=== PATIENT | female | born 1970 | race African-American/Black ===

== ENCOUNTER 2016-10-28 12:34 | Inpatient (IN) | payer SELFPAY ==
[~2016-10-28] VITALS: Ht 154.9 cm; Wt 121.3 kg
[2016-10-28] VITALS (7 sets, daily range): BP systolic 148–180; BP diastolic 88–97
[~2016-10-28 12:34] MED LIST: DOXY100T PO; LISI40TA PO; VENTOLIN HFA18 GM INH
[2016-10-28] MEDS ORDERED: methylPREDNISolone SOD SUCC PF 125 MG/2 ML VIAL. IV ONE (13:00)
[2016-10-28] MEDS ORDERED: IPRATROPIUM BROMIDE 0.5 MG/2.5 ML NEBU. NEB ONE ×2 (13:00→15:45)
[2016-10-28] MEDS ORDERED: ALBUTEROL SULFATE 2.5 MG/3 ML NEBU. CONT NEB ONE ×2 (13:00→15:45)
--- NOTE | 2016-10-28 13:09 | RAD ---
Indication: Chest pain and shortness of air. Time of exam 1302 hours. Correlation is made with prior study from 04/24/2016. The heart is enlarged. There is central congestion but no overt failure. No effusion or pneumothorax is seen. Impression: Cardiomegaly and central congestion.
[2016-10-28 13:14] LABS: CALCIUM 9.6 mg/dL (8.5-10.1); GFR 72.9; POTASSIUM 3.4 mmol/L (3.5-5.1)
[2016-10-28 13:19] LABS: BASO % 0 % (0-3); EOS % 1 % (0-3); HEMATOCRIT 43.9 % (36.0-47.0); HEMOGLOBIN 15.3 g/dL (12.0-15.5); LYMPH # 2.4 x10^3/uL (1.0-4.8); LYMPH % 47 % (24-48); MEAN CORPUSCULAR HEMOGLOBIN 31 pg (25-35); MEAN CORPUSCULAR HGB CONC 35 g/dL (31-37); MEAN CORPUSCULAR VOLUME 90 fL (79-100); MONO % 9 % (0-9); NEUT % 43 % (31-73); PLATELET COUNT 289 x10^3/uL (140-400); RED BLOOD COUNT 4.91 x10^6/uL (3.50-5.40); RED CELL DISTRIBUTION WIDTH 13.6 % (11.5-14.5); WHITE BLOOD COUNT 5.2 x10^3/uL (4.0-11.0)
[2016-10-28 13:20] LABS: ALBUMIN 3.9 g/dL (3.4-5.0); ALBUMIN/GLOBULIN RATIO 0.9 (1.0-1.7); TOTAL BILIRUBIN 0.5 mg/dL (0.2-1.0); TOTAL PROTEIN 8.4 g/dL (6.4-8.2)
[2016-10-28 13:26] LABS: HCO3 ABG 23 mmol/L (21-28); PCO2 ABG 36 mmHg (35-46); PH ABG 7.43 (7.35-7.45); PO2 ABG 69 mmHg (75-108); SAT O2 ABG 94 % (92-99)
[2016-10-28 13:55] LABS: FIO2 ABG 21
[2016-10-28] MEDS ORDERED: MAGNESIUM SULFATE 1GM 100 ML IV ONE (14:30)
[2016-10-28] MEDS ORDERED: EPINEPHrine 1 MG/ML VIAL SQ ONE (14:30)
[2016-10-28] MEDS ORDERED: KETAMINE HCL 500 MG/10 ML VIAL. IV ONE ×2 (14:45→17:45)
[2016-10-28 15:29] LABS: HCO3 ABG 21 mmol/L (21-28); PCO2 ABG 34 mmHg (35-46); PH ABG 7.41 (7.35-7.45); PO2 ABG 67 mmHg (75-108); SAT O2 ABG 93 % (92-99)
[2016-10-28 15:30] LABS: FIO2 ABG 21
--- NOTE | 2016-10-28 16:19 | EKG ---
[facility] [address] [place] [address] Test Date: 2016-10-28 Test Time: 12:41:38 Pat Name: RADHIKA SCHAEFER Department: Room: Gender: F [employer]: : 1970 Requested By: CONI CERVANTES Order Number: [id number] Reading MD: Radha Meraz Measurements Intervals [place] Rate: 108 P: 26 TX: 144 QRS: -9 QRSD: 86 T: 21 QT: 328 QTc: 443 Interpretive Statements SINUS TACHYCARDIA LEFT ATRIAL ABNORMALITY LEFTWARD AXIS ABNORMAL ECG Electronically Signed On 10-31-2016 21:02:13 CDT by Radha Meraz
[2016-10-28] MEDS ORDERED: PROPOFOL 50 ML IV ONE (16:37)
--- NOTE | 2016-10-28 16:42 | PDOC1 ---
History and Physical Date of Admission Date of Admission 10/28/16 Identification/Chief Complaint Chief Complaint sob Problems: Source Source: Caregiver, Chart review, Patient History of Present Illness History of Present Illness 46yo F, came to ER for sob. Pt was here 04/2016 for asthma exacerbation. Pt woke up today with some chest pain, sob, could not go to work and drove to ER. Pt has severe sob, wheezing, not improving with meds in ER, on bipap, better then feels worse again. When i saw her in ER, barely able to talk, diaphoresis, admitted that she is tired of sob. was intubated before. Pt's at bedside, contributed to history that pt lost insurance then not taking her meds daily, only as needed. Pt was doing ok yesterday, no fever, chills, cough or sob till today. denies allergy or pets, not sure which flare it up. Past Medical History Cardiovascular: HTN Pulmonary: Asthma Past Surgical History Past Surgical History: Hysterectomy Family History Family History: Hypertension Social History Smoke: No ALCOHOL: none Drugs: None Current Medications Current Medications Current Medications Medications (Trade) Dose Ordered Sig/Rc Start Time Stop Time Status Last Admin Dose Admin Albuterol Sulfate (Ventolin Neb Soln) 10 mg 1X ONCE 10/28/16 15:45 10/28/16 15:46 DC 10/28/16 15:47 10 MG Epinephrine HCl (Adrenalin) 0.5 mg 1X ONCE 10/28/16 14:30 10/28/16 14:31 DC 10/28/16 14:58 0.5 MG Ipratropium [place] (Atrovent) 0.5 mg 1X ONCE 10/28/16 15:45 10/28/16 15:46 DC 10/28/16 15:47 0.5 MG Ketamine HCl 100 mg 1X ONCE 10/28/16 14:45 10/28/16 14:46 DC 10/28/16 14:55 100 MG Lorazepam (Ativan) 1 mg 1X ONCE 10/28/16 13:00 10/28/16 13:01 DC 10/28/16 13:20 1 MG Magnesium Sulfate/ Dextrose 100 ml @ 100 mls/hr 1X ONCE 10/28/16 14:30 10/28/16 15:29 DC 10/28/16 15:00 100 MLS/HR Methylprednisolone Sodium Succinate (SOLU-Medrol 125MG VIAL) 125 mg 1X ONCE 10/28/16 13:00 10/28/16 13:01 DC 10/28/16 13:26 125 MG Allergies Allergies Allergies Coded Allergies Type Severity Reaction Last Updated Verified amoxicillin Allergy Intermediate 01/26/15 Yes ROS Review of System CONSTITUTIONAL: No fever or chills EYES: No recent changes SKIN: No rash or itching CARDIOVASCULAR: No chest pain, syncope, palpitations, or edema RESPIRATORY: No SOB or cough GASTROINTESTINAL: No nausea, vomiting or abdominal pain NEUROLOGICAL: No headaches or weakness ENDOCRINE: No cold or heat intolerance GENITOURINARY: No urgency or frequency of urination MUSCULOSKELETAL: No back pain or joint pain LYMPHATICS: No enlarged lymph nodes PSYCHIATRIC: No anxiety or depression Physical Exam Physical Exam GEN.: sob, diaphoresis. barely able to talk. HEENT: Head is normocephalic, atraumatic NECK: Supple. LUNGS: bl diffuse mild wheezing with tight BS. HEART: RRR, S1, S2 present. Peripheral pulses intact ABDOMEN: Soft, nontender. Positive bowel sounds. EXTREMITIES: Without any cyanosis. NEUROLOGIC: Normal speech, normal tone PSYCHIATRIC: Normal affect, normal mood. SKIN: No ulcerations Vitals Vitals Vital Signs Date Time Temp Pulse Resp B/P (MAP) Pulse Ox O2 Delivery O2 Flow Rate FiO2 10/28/16 15:47 97 Room Air 10/28/16 14:15 120 135/67 (89) 10/28/16 13:57 32 10/28/16 12:44 98.1 98.1 Labs Labs Laboratory Tests Test 10/28/16 12:46 10/28/16 12:50 10/28/16 15:21 O2 Saturation 94 % (92-99) 93 % (92-99) Arterial Blood pH 7.43 (7.35-7.45) 7.41 (7.35-7.45) Arterial Blood pCO2 at Patient Temp 36 mmHg (35-46) 34 mmHg (35-46) Arterial Blood pO2 at Patient Temp 69 mmHg (75-108) 67 mmHg (75-108) Arterial Blood HCO3 23 mmol/L (21-28) 21 mmol/L (21-28) Arterial Blood Base Excess -1 mmol/L (-3-3) -3 mmol/L (-3-3) FiO2 21 21 White Blood Count 5.2 x10^3/uL (4.0-11.0) Red Blood Count 4.91 x10^6/uL (3.50-5.40) Hemoglobin 15.3 g/dL (12.0-15.5) Hematocrit 43.9 % (36.0-47.0) Mean Corpuscular Volume 90 fL (79-100) Mean Corpuscular Hemoglobin 31 pg (25-35) Mean Corpuscular Hemoglobin Concent 35 g/dL (31-37) Red Cell Distribution Width 13.6 % (11.5-14.5) Platelet Count 289 x10^3/uL (140-400) Neutrophils (%) (Auto) 43 % (31-73) Lymphocytes (%) (Auto) 47 % (24-48) Monocytes (%) (Auto) 9 % (0-9) Eosinophils (%) (Auto) 1 % (0-3) Basophils (%) (Auto) 0 % (0-3) Neutrophils # (Auto) 2.3 x10^3uL (1.8-7.7) Lymphocytes # (Auto) 2.4 x10^3/uL (1.0-4.8) Monocytes # (Auto) 0.5 x10^3/uL (0.0-1.1) Eosinophils # (Auto) 0.0 x10^3/uL (0.0-0.7) Basophils # (Auto) 0.0 x10^3/uL (0.0-0.2) Sodium Level 141 mmol/L (136-145) Potassium Level 3.4 mmol/L (3.5-5.1) Chloride Level 104 mmol/L (98-107) Carbon Dioxide Level 27 mmol/L (21-32) Anion Gap 10 (6-14) Blood Urea Nitrogen 9 mg/dL (7-20) Creatinine 1.0 mg/dL (0.6-1.0) Estimated GFR (Cockcroft-Gault) 72.9 BUN/Creatinine Ratio 9 (6-20) Glucose Level 127 mg/dL (70-99) Calcium Level 9.6 mg/dL (8.5-10.1) Total Bilirubin 0.5 mg/dL (0.2-1.0) Aspartate Amino Transf (AST/SGOT) 35 U/L (15-37) Alanine Aminotransferase (ALT/SGPT) 48 U/L (14-59) Alkaline Phosphatase 145 U/L (46-116) Troponin I Quantitative < 0.017 ng/mL (0.000-0.055) Total Protein 8.4 g/dL (6.4-8.2) Albumin 3.9 g/dL (3.4-5.0) Albumin/Globulin Ratio 0.9 (1.0-1.7) Laboratory Tests Test 10/28/16 12:46 10/28/16 12:50 10/28/16 15:21 O2 Saturation 94 % (92-99) 93 % (92-99) Arterial Blood pH 7.43 (7.35-7.45) 7.41 (7.35-7.45) Arterial Blood pCO2 at Patient Temp 36 mmHg (35-46) 34 mmHg (35-46) Arterial Blood pO2 at Patient Temp 69 mmHg (75-108) 67 mmHg (75-108) Arterial Blood HCO3 23 mmol/L (21-28) 21 mmol/L (21-28) Arterial Blood Base Excess -1 mmol/L (-3-3) -3 mmol/L (-3-3) FiO2 21 21 White Blood Count 5.2 x10^3/uL (4.0-11.0) Red Blood Count 4.91 x10^6/uL (3.50-5.40) Hemoglobin 15.3 g/dL (12.0-15.5) Hematocrit 43.9 % (36.0-47.0) Mean Corpuscular Volume 90 fL (79-100) Mean Corpuscular Hemoglobin 31 pg (25-35) Mean Corpuscular Hemoglobin Concent 35 g/dL (31-37) Red Cell Distribution Width 13.6 % (11.5-14.5) Platelet Count 289 x10^3/uL (140-400) Neutrophils (%) (Auto) 43 % (31-73) Lymphocytes (%) (Auto) 47 % (24-48) Monocytes (%) (Auto) 9 % (0-9) Eosinophils (%) (Auto) 1 % (0-3) Basophils (%) (Auto) 0 % (0-3) Neutrophils # (Auto) 2.3 x10^3uL (1.8-7.7) Lymphocytes # (Auto) 2.4 x10^3/uL (1.0-4.8) Monocytes # (Auto) 0.5 x10^3/uL (0.0-1.1) Eosinophils # (Auto) 0.0 x10^3/uL (0.0-0.7) Basophils # (Auto) 0.0 x10^3/uL (0.0-0.2) Sodium Level 141 mmol/L (136-145) Potassium Level 3.4 mmol/L (3.5-5.1) Chloride Level 104 mmol/L (98-107) Carbon Dioxide Level 27 mmol/L (21-32) Anion Gap 10 (6-14) Blood Urea Nitrogen 9 mg/dL (7-20) Creatinine 1.0 mg/dL (0.6-1.0) Estimated GFR (Cockcroft-Gault) 72.9 BUN/Creatinine Ratio 9 (6-20) Glucose Level 127 mg/dL (70-99) Calcium Level 9.6 mg/dL (8.5-10.1) Total Bilirubin 0.5 mg/dL (0.2-1.0) Aspartate Amino Transf (AST/SGOT) 35 U/L (15-37) Alanine Aminotransferase (ALT/SGPT) 48 U/L (14-59) Alkaline Phosphatase 145 U/L (46-116) Troponin I Quantitative < 0.017 ng/mL (0.000-0.055) Total Protein 8.4 g/dL (6.4-8.2) Albumin 3.9 g/dL (3.4-5.0) Albumin/Globulin Ratio 0.9 (1.0-1.7) VTE Prophylaxis Ordered VTE Prophylaxis Devices: Yes VTE Pharmacological Prophylaxi: Yes Assessment/Plan Assessment/Plan acute resp failure with asthma exacerbation htn urgency uncompliance with meds 2/2 no insurance morbid obesity BMI 41 HYPOkalemia plan: pulm consult likely need intubated ICU care cont solumedrol, duoneb, albuterol prn hold po home meds dvt ppx replete K npo ivf need gi ppx, but this hosp doesnot allow iv protonix or pepcid, need to address tmr plz critical care 40min GUERLINE MARROQUIN MD Oct 28, 2016 16:42
[2016-10-28] MEDS ORDERED: ONDANSETRON PF 4 MG/2 ML VIAL. IV PRN ×2 (16:45→17:15)
[2016-10-28] MEDS ORDERED: hydrALAZINE 20 MG/ML VIAL. IVP PRN (16:45)
[2016-10-28] MEDS ORDERED: ACETAMINOPHEN 325 MG TABLET. PO PRN (16:45)
[2016-10-28] MEDS: PROPOFOL 100 ML IV PRN ×4 (16:50→23:55)
[2016-10-28] MEDS ORDERED: methylPREDNISolone SOD SUCC PF 125 MG/2 ML VIAL. IV SCH ×2 (17:00→18:00)
--- NOTE | 2016-10-28 17:20 | RAD ---
Portable AP supine view CXR: 1703 Clinical indications: ET tube and NG tube placement. Comparison: Same day performed at 1302. Findings: Tip of the ET tube is situated at the opening of the right mainstem bronchus. ET tube may be pulled back 2 cm. NG tube tip is located within the mid body of the stomach. No pneumothorax or pleural effusion is seen. There is some mild left lung base atelectasis now present. The heart size appears more normal in this study due to better positioning. Mediastinum and pulmonary vasculature are unremarkable. IMPRESSION: ET tube tip is too low and situated within the opening of the right mainstem bronchus. This finding was called to the emergency room physician at 5:17 p.m. on October 28, 2016. Mild left lung base atelectasis.
--- NOTE | 2016-10-28 17:34 | ACF ---
Admission Forms Criteria RESPIRATORY FAILURE [facility] Clinical Indications for Admission to Inpatient Care (Place 'X' for any and all applicable criteria): Hospital admission is needed for appropriate care of the patient because of acute respiratory failure or insufficiency as indicated by ANY ONE of the following(1)(2)(3)(4)(5)(6)(7)(8): [X ]I. Mechanical ventilation needed (acute invasive or noninvasive) [ ]II. Severe ventilation deficit as indicated by ANY ONE of the following (9) [ ]a) Respiratory acidosis (pH less than 7.32 and partial pressure of carbon dioxide greater than 40 mm Hg (5.3 kPa)) [ ]b) Partial pressure of carbon dioxide greater than 44 mm Hg (5.9 kPa ) (new) [ ]c) Airflow measurements less than 25% of predicted (eg, peak expiratory flow rate less than 100 L/minute) [ ]d) Forced vital capacity less than 15 mL/kg of ideal body weight, or 50% decrease in vital capacity from baseline [ ]III. Noncardiac pulmonary edema not resolving with rapid emergency treatment (8) [ ]IV. Severe respiratory distress as indicated by ANY ONE of the following: [ ]a) Severe tachypnea (respiratory rate greater than 30, greater than 45 for 6-month-old, greater than 60 for ) [ ]b) Severe hypoxemia (partial pressure of oxygen less than 50 mm Hg ( 6.7 kPa) on greater than 50% oxygen or partial pressure of oxygen to FIO2 ratio less than 200) [ ]c) Mental status deterioration from respiratory disease [ ]V. Airway obstruction or inadequate protection [A](10)(11) The original [employer] content created by [employer] has been revised. The portions of the content which have been revised are identified through the use of italic text or in bold, and [employer] has neither reviewed nor approved the modified material. All other unmodified content is copyright [employer]. Please see references footnoted in the original [employer] edition 2016 Admission Criteria Met?: Yes GWEN LAUREN Oct 28, 2016 17:34
[2016-10-28] MEDS ORDERED: ROCURONIUM 50 MG/5 ML VIAL. IV ONE (17:45)
[2016-10-28 17:47] LABS: HCO3 ABG 20 mmol/L (21-28); PO2 ABG 123 mmHg (75-108); SAT O2 ABG 98 % (92-99)
[2016-10-28 17:48] LABS: PCO2 ABG 42 mmHg (35-46)
[2016-10-28] MEDS: POTASSIUM CL 20MEQ D5-0.45NACL 1,000 ML IV SCH (18:14)
[2016-10-28] MEDS: POTASSIUM CHLORIDE 10MEQ 100 ML IV SCH ×2 (18:15→21:14)
--- NOTE | 2016-10-28 18:18 | PDOC2 ---
CONSULT Date of Consult Date of Consult DATE: 10/28/16 TIME: 18:10 Reason for Consult Reason for Consult: VENT MANAGEMENT STATUS ASTHMATICUS Referring Physician Referring Physician: DR MARROQUIN Identification/Chief Complaint Chief Complaint SOA Problems: Source Source: Caregiver, Chart review History of Present Illness Reason for Visit: 46 WITH HISTORY OF ASTHMA DOES NOT FOLLOW WTIH ANY DOCTORS SEC TO NO INSURANCE NO INHALER AT HOME AT THIS TIME SOA TODAY STATES SHE MIXED AN SHAPER OPERATOR INHALED FUMES NO FEVER UNKNOWN TRIGGERS DOES NOT SMOKE Past Medical History Cardiovascular: HTN Pulmonary: Asthma Past Surgical History Past Surgical History: Hysterectomy Family History Family History: Hypertension Social History No ALCOHOL: none Drugs: None Current Medications Current Medications Current Medications Albuterol Sulfate (Ventolin Neb Soln) 10 mg 1X ONCE CONT NEB Last administered on 10/28/16 12:52; Start 10/28/16 at 13:00; Stop 10/28/16 at 13:01 ; Status DC Ipratropium [place] (Atrovent) 0.5 mg 1X ONCE NEB Last administered on 13:02; Start 10/28/16 at 13:00; Stop 10/28/16 at 13:01; Status DC Methylprednisolone Sodium Succinate (SOLU-Medrol 125MG VIAL) 125 mg 1X ONCE IV Last administered on 10/28/16 13:26; Start 10/28/16 at 13:00; Stop 10/28/16 at 13:01; Status DC Lorazepam (Ativan) 1 mg 1X ONCE IV Last administered on 10/28/16 13:20; Start 10/28/16 at 13:00; Stop 10/28/16 at 13:01; Status DC Magnesium Sulfate/ Dextrose 100 ml @ 100 mls/hr 1X ONCE IV Last administered on 10/28/16 15:00; Start 10/28/16 at 14:30; Stop 10/28/16 at 15:29; Status DC Epinephrine HCl (Adrenalin) 0.5 mg 1X ONCE SQ Last administered on 10/28/16 14:58; Start 10/28/16 at 14:30; Stop 10/28/16 at 14:31; Status DC Ketamine HCl 100 mg 1X ONCE IV Last administered on 10/28/16 14:55; Start at 14:45; Stop 10/28/16 at 14:46; Status DC Albuterol Sulfate (Ventolin Neb Soln) 10 mg 1X ONCE CONT NEB Last administered on 10/28/16 15:47; Start 10/28/16 at 15:45; Stop 10/28/16 at 15:46 ; Status DC Ipratropium [place] (Atrovent) 0.5 mg 1X ONCE NEB Last administered on t 15:47; Start 10/28/16 at 15:45; Stop 10/28/16 at 15:46; Status DC Acetaminophen (Tylenol) 650 mg PRN Q6HRS PRN PO FEVER; Start 10/28/16 at 16:45 Ondansetron HCl (Zofran) 4 mg PRN Q6HRS PRN IV NAUSEA/VOMITING; Start 10/28/16 at 16:45 Morphine Sulfate 2 mg PRN Q2HR PRN IV PAIN; Start 10/28/16 at 16:45 Tramadol HCl (Ultram) 50 mg PRN Q6HRS PRN PO PAIN; Start 10/28/16 at 16:45 Hydralazine HCl (Apresoline) 10 mg PRN Q4HRS PRN IVP ELEVATED BP, SEE COMMENTS ; Start 10/28/16 at 16:45 Docusate Sodium (Colace) 100 mg PRN DAILY PRN PO CONSTIPATION; Start 10/28/16 at 16:45 Albuterol/ Ipratropium (Duoneb) 3 ml RTQID NEB ; Start 10/28/16 at 20:00 Albuterol Sulfate (Ventolin Neb Soln) 2.5 mg PRN Q2HR PRN NEB SHORTNESS OF BREATH; Start 10/28/16 at 16:45 Guaifenesin (Mucinex) 600 mg BID PO ; Start 10/28/16 at 21:00; Stop 10/28/16 at 21:00; Status DC Propofol 50 ml @ As Directed STK-MED ONCE IV ; Start 10/28/16 at 16:37; Stop at 16:38; Status DC Methylprednisolone Sodium Succinate (SOLU-Medrol 125MG VIAL) 60 mg Q8H IV ; Start 10/28/16 at 17:00 Enoxaparin Sodium (Lovenox 40mg Syringe) 40 mg Q12H SQ ; Start 10/28/16 at 21:00 Potassium Chloride 100 ml @ 100 mls/hr Q1H IV ; Start 10/28/16 at 17:00; Stop 10/28/16 at 18:59 Potassium Chloride/Dextrose/ Sod Cl 1,000 ml @ 75 mls/hr [id number] IV ; Start at 17:00 Propofol 100 ml @ 0 mls/hr CONT PRN IV PER PROTOCOL Last administered on 16:50; Start 10/28/16 at 17:00 Ondansetron HCl (Zofran) 4 mg PRN Q8HRS PRN IV NAUSEA/VOMITING; Start 10/28/16 at 17:15; Stop 10/29/16 at 17:14 Methylprednisolone Sodium Succinate (SOLU-Medrol 125MG VIAL) 62.5 mg Q6HRS IV ; Start 10/28/16 at 18:00; Stop 10/28/16 at 18:00; Status DC Rocuronium [place] (Zemuron) 50 mg 1X ONCE IV Last administered on 10/28/16 16:40; Start 10/28/16 at 17:45; Stop 10/28/16 at 17:51; Status DC Ketamine HCl 400 mg 1X ONCE IV Last administered on 10/28/16 16:39; Start at 17:45; Stop 10/28/16 at 17:51; Status DC Active Scripts Active Doxycycline Hyclate 100 Mg Tablet 100 Mg PO BID Reported Ventolin Hfa Inhaler (Albuterol Sulfate) 18 Gm Hfa.aer.ad 2 Puff INH Q4HRS Lisinopril 40 Mg Tablet 1 Tab PO DAILY No Known Medications Prior To Admisstion (Info) Each 1 Each Allergies Allergies: Coded Allergies: amoxicillin (Verified Allergy, Intermediate, 01/26/15) Physical Exam Lungs: Clear to auscultation Heart: Regular rate, Normal S1, Normal S2 Abdomen: Normal bowel sounds, No tenderness Extremities: No clubbing, No cyanosis Skin: No rashes, No breakdown Neuro: Other (SEDATED) Vitals VITALS Vital Signs Date Time Temp Pulse Resp B/P (MAP) Pulse Ox O2 Delivery O2 Flow Rate FiO2 10/28/16 16:53 136 17 185/99 (127) 98 Ventilator 10/28/16 12:44 98.1 98.1 Labs Labs Laboratory Tests Test 10/28/16 12:46 10/28/16 12:50 10/28/16 15:21 10/28/16 17:45 O2 Saturation 94 % (92-99) 93 % (92-99) 98 % (92-99) Arterial Blood pH 7.43 (7.35-7.45) 7.41 (7.35-7.45) 7.30 (7.35-7.45) Arterial Blood pCO2 at Patient Temp 36 mmHg (35-46) 34 mmHg (35-46) 42 mmHg (35-46) Arterial Blood pO2 at Patient Temp 69 mmHg (75-108) 67 mmHg (75-108) 123 mmHg (75-108) Arterial Blood HCO3 23 mmol/L (21-28) 21 mmol/L (21-28) 20 mmol/L (21-28) Arterial Blood Base Excess -1 mmol/L (-3-3) -3 mmol/L (-3-3) -6 mmol/L (-3-3) FiO2 21 21 40.0 White Blood Count 5.2 x10^3/uL (4.0-11.0) Red Blood Count 4.91 x10^6/uL (3.50-5.40) Hemoglobin 15.3 g/dL (12.0-15.5) Hematocrit 43.9 % (36.0-47.0) Mean Corpuscular Volume 90 fL (79-100) Mean Corpuscular Hemoglobin 31 pg (25-35) Mean Corpuscular Hemoglobin Concent 35 g/dL (31-37) Red Cell Distribution Width 13.6 % (11.5-14.5) Platelet Count 289 x10^3/uL (140-400) Neutrophils (%) (Auto) 43 % (31-73) Lymphocytes (%) (Auto) 47 % (24-48) Monocytes (%) (Auto) 9 % (0-9) Eosinophils (%) (Auto) 1 % (0-3) Basophils (%) (Auto) 0 % (0-3) Neutrophils # (Auto) 2.3 x10^3uL (1.8-7.7) Lymphocytes # (Auto) 2.4 x10^3/uL (1.0-4.8) Monocytes # (Auto) 0.5 x10^3/uL (0.0-1.1) Eosinophils # (Auto) 0.0 x10^3/uL (0.0-0.7) Basophils # (Auto) 0.0 x10^3/uL (0.0-0.2) Sodium Level 141 mmol/L (136-145) Potassium Level 3.4 mmol/L (3.5-5.1) Chloride Level 104 mmol/L (98-107) Carbon Dioxide Level 27 mmol/L (21-32) Anion Gap 10 (6-14) Blood Urea Nitrogen 9 mg/dL (7-20) Creatinine 1.0 mg/dL (0.6-1.0) Estimated GFR (Cockcroft-Gault) 72.9 BUN/Creatinine Ratio 9 (6-20) Glucose Level 127 mg/dL (70-99) Calcium Level 9.6 mg/dL (8.5-10.1) Total Bilirubin 0.5 mg/dL (0.2-1.0) Aspartate Amino Transf (AST/SGOT) 35 U/L (15-37) Alanine Aminotransferase (ALT/SGPT) 48 U/L (14-59) Alkaline Phosphatase 145 U/L (46-116) Troponin I Quantitative < 0.017 ng/mL (0.000-0.055) Total Protein 8.4 g/dL (6.4-8.2) Albumin 3.9 g/dL (3.4-5.0) Albumin/Globulin Ratio 0.9 (1.0-1.7) Laboratory Tests Test 10/28/16 12:46 10/28/16 12:50 10/28/16 15:21 10/28/16 17:45 O2 Saturation 94 % (92-99) 93 % (92-99) 98 % (92-99) Arterial Blood pH 7.43 (7.35-7.45) 7.41 (7.35-7.45) 7.30 (7.35-7.45) Arterial Blood pCO2 at Patient Temp 36 mmHg (35-46) 34 mmHg (35-46) 42 mmHg (35-46) Arterial Blood pO2 at Patient Temp 69 mmHg (75-108) 67 mmHg (75-108) 123 mmHg (75-108) Arterial Blood HCO3 23 mmol/L (21-28) 21 mmol/L (21-28) 20 mmol/L (21-28) Arterial Blood Base Excess -1 mmol/L (-3-3) -3 mmol/L (-3-3) -6 mmol/L (-3-3) FiO2 21 21 40.0 White Blood Count 5.2 x10^3/uL (4.0-11.0) Red Blood Count 4.91 x10^6/uL (3.50-5.40) Hemoglobin 15.3 g/dL (12.0-15.5) Hematocrit 43.9 % (36.0-47.0) Mean Corpuscular Volume 90 fL (79-100) Mean Corpuscular Hemoglobin 31 pg (25-35) Mean Corpuscular Hemoglobin Concent 35 g/dL (31-37) Red Cell Distribution Width 13.6 % (11.5-14.5) Platelet Count 289 x10^3/uL (140-400) Neutrophils (%) (Auto) 43 % (31-73) Lymphocytes (%) (Auto) 47 % (24-48) Monocytes (%) (Auto) 9 % (0-9) Eosinophils (%) (Auto) 1 % (0-3) Basophils (%) (Auto) 0 % (0-3) Neutrophils # (Auto) 2.3 x10^3uL (1.8-7.7) Lymphocytes # (Auto) 2.4 x10^3/uL (1.0-4.8) Monocytes # (Auto) 0.5 x10^3/uL (0.0-1.1) Eosinophils # (Auto) 0.0 x10^3/uL (0.0-0.7) Basophils # (Auto) 0.0 x10^3/uL (0.0-0.2) Sodium Level 141 mmol/L (136-145) Potassium Level 3.4 mmol/L (3.5-5.1) Chloride Level 104 mmol/L (98-107) Carbon Dioxide Level 27 mmol/L (21-32) Anion Gap 10 (6-14) Blood Urea Nitrogen 9 mg/dL (7-20) Creatinine 1.0 mg/dL (0.6-1.0) Estimated GFR (Cockcroft-Gault) 72.9 BUN/Creatinine Ratio 9 (6-20) Glucose Level 127 mg/dL (70-99) Calcium Level 9.6 mg/dL (8.5-10.1) Total Bilirubin 0.5 mg/dL (0.2-1.0) Aspartate Amino Transf (AST/SGOT) 35 U/L (15-37) Alanine Aminotransferase (ALT/SGPT) 48 U/L (14-59) Alkaline Phosphatase 145 U/L (46-116) Troponin I Quantitative < 0.017 ng/mL (0.000-0.055) Total Protein 8.4 g/dL (6.4-8.2) Albumin 3.9 g/dL (3.4-5.0) Albumin/Globulin Ratio 0.9 (1.0-1.7) Images Images CXR REVIEWED NO INFILTRATES Assessment/Plan Assessment/Plan PT SEEN IN ER, SPOKE WITH FAMILY AND MOTHER STATUS ASTHMATICUS INHALATION OF TOXIC FUMES PLAN PT INTUBATED NOT IMPROVING WITH THERAPY IN ER STEROIDS, NEBS, MECHANICAL SUPPORT FOR NOW HOPEFULLY EXTUBATE IN AM D/W ER PHYSICIAN ONCE D/C CAN [employer]Y'S ADVISER SOME SAMPLES INHALERS FROM MY OFFICE, THEY HAVE APPLIED FOR FREE MED AND DID NOT QUALIFY THANKS CHELSEA BRADSHAW MD Oct 28, 2016 18:18
[2016-10-28] MEDS: IPRATRPIUM/ALBUTEROL 0.5/2.5MG 3 ML NEBU. NEB SCH (19:28)
--- NOTE | 2016-10-28 20:01 | ED.ADGEN ---
Past Medical History Past Medical History: Anxiety, Asthma, Hypertension Past Surgical History: Hysterectomy, Tonsillectomy Additional Past Surgical Histo: bladder sling, cataract Alcohol Use: Occasionally Drug Use: None Adult General Chief Complaint Chief Complaint: CHEST WALL PAIN HPI HPI Patient is a 46 year old -Citizen Of [place] female with history of severe asthma with multiple prior hospitalizations requiring intubation presents with chest wall pain, shortness of breath with tight wheezing earlier this morning. Symptoms have progressed despite home nebulizer treatment use. Patient denies specific cause her trigger. She is a nonsmoker. History is limited due to the patient's respiratory distress. Review of Systems Review of Systems Review symptoms as per history of present illness. All other review symptoms are negative. Current Medications Current Medications Current Medications Medications (Trade) Dose Ordered Sig/Rc Start Time Stop Time Status Last Admin Dose Admin Albuterol Sulfate (Ventolin Neb Soln) 10 mg 1X ONCE 10/28/16 13:00 10/28/16 13:01 DC 10/28/16 12:52 10 MG Epinephrine HCl (Adrenalin) 0.5 mg 1X ONCE 10/28/16 14:30 10/28/16 14:31 DC 10/28/16 14:58 0.5 MG Ipratropium [place] (Atrovent) 0.5 mg 1X ONCE 10/28/16 13:00 10/28/16 13:01 DC 10/28/16 13:02 0.5 MG Lorazepam (Ativan) 1 mg 1X ONCE 10/28/16 13:00 10/28/16 13:01 DC 10/28/16 13:20 1 MG Magnesium Sulfate/ Dextrose 100 ml @ 100 mls/hr 1X ONCE 10/28/16 14:30 10/28/16 15:29 DC 10/28/16 15:00 100 MLS/HR Methylprednisolone Sodium Succinate (SOLU-Medrol 125MG VIAL) 125 mg 1X ONCE 10/28/16 13:00 10/28/16 13:01 DC 10/28/16 13:26 125 MG Allergies Allergies Allergies Coded Allergies Type Severity Reaction Last Updated Verified amoxicillin Allergy Intermediate 01/26/15 Yes Physical Exam Physical Exam Constitutional: Well developed, well nourished, on her to severe respiratory distress. HENT: Normocephalic, atraumatic, bilateral external ears normal, oropharynx moist. Eyes: PERRLA, EOMI, conjunctiva normal. Neck: Normal range of motion, supple. Cardiovascular: Tachycardic.. Lungs & Thorax: Respirations labored, moderate to severe respiratory distress, speaks in 2-3 word sentences. Rest sounds bilaterally, no wheezes auscultated. Abdomen: Bowel sounds normal, soft, no tenderness. Skin: Warm, dry, no erythema. Back: No tenderness. Extremities: No tenderness. Neurologic: Alert and oriented X 3, normal motor function, normal sensory function, no focal deficits noted. Psychologic: Affect, anxious. Current Patient Data Vital Signs Vital Signs Date Time Temp Pulse Resp B/P (MAP) Pulse Ox O2 Delivery O2 Flow Rate FiO2 10/28/16 14:30 98 BiPAP/CPAP 10/28/16 14:15 120 135/67 (89) 10/28/16 13:57 32 10/28/16 12:44 98.1 98.1 Lab Values Laboratory Tests Test 10/28/16 12:46 10/28/16 12:50 O2 Saturation 94 % (92-99) Arterial Blood pH 7.43 (7.35-7.45) Arterial Blood pCO2 at Patient Temp 36 mmHg (35-46) Arterial Blood pO2 at Patient Temp 69 mmHg (75-108) L Arterial Blood HCO3 23 mmol/L (21-28) Arterial Blood Base Excess -1 mmol/L (-3-3) FiO2 21 White Blood Count 5.2 x10^3/uL (4.0-11.0) Red Blood Count 4.91 x10^6/uL (3.50-5.40) Hemoglobin 15.3 g/dL (12.0-15.5) Hematocrit 43.9 % (36.0-47.0) Mean Corpuscular Volume 90 fL (79-100) Mean Corpuscular Hemoglobin 31 pg (25-35) Mean Corpuscular Hemoglobin Concent 35 g/dL (31-37) Red Cell Distribution Width 13.6 % (11.5-14.5) Platelet Count 289 x10^3/uL (140-400) Neutrophils (%) (Auto) 43 % (31-73) Lymphocytes (%) (Auto) 47 % (24-48) Monocytes (%) (Auto) 9 % (0-9) Eosinophils (%) (Auto) 1 % (0-3) Basophils (%) (Auto) 0 % (0-3) Neutrophils # (Auto) 2.3 x10^3uL (1.8-7.7) Lymphocytes # (Auto) 2.4 x10^3/uL (1.0-4.8) Monocytes # (Auto) 0.5 x10^3/uL (0.0-1.1) Eosinophils # (Auto) 0.0 x10^3/uL (0.0-0.7) Basophils # (Auto) 0.0 x10^3/uL (0.0-0.2) Sodium Level 141 mmol/L (136-145) Potassium Level 3.4 mmol/L (3.5-5.1) L Chloride Level 104 mmol/L (98-107) Carbon Dioxide Level 27 mmol/L (21-32) Anion Gap 10 (6-14) Blood Urea Nitrogen 9 mg/dL (7-20) Creatinine 1.0 mg/dL (0.6-1.0) Estimated GFR (Cockcroft-Gault) 72.9 BUN/Creatinine Ratio 9 (6-20) Glucose Level 127 mg/dL (70-99) H Calcium Level 9.6 mg/dL (8.5-10.1) Total Bilirubin 0.5 mg/dL (0.2-1.0) Aspartate Amino Transferase (AST) 35 U/L (15-37) Alanine Aminotransferase (ALT) 48 U/L (14-59) Alkaline Phosphatase 145 U/L (46-116) H Troponin I Quantitative < 0.017 ng/mL (0.000-0.055) Total Protein 8.4 g/dL (6.4-8.2) H Albumin 3.9 g/dL (3.4-5.0) Albumin/Globulin Ratio 0.9 (1.0-1.7) L Laboratory Tests 10/28/16 12:50 Laboratory Tests 10/28/16 12:50 EKG EKG [] Radiology/Procedures Radiology/Procedures [Chest x-ray: No acute cardiopulmonary disease Post intubation chest x-ray: Endotracheal above her right mainstem bronchus Indication: Respiratory failure Consent: Unable to give consent due to emergent nature. Medications Used: see nursing note Procedure: The patient was placed in the appropriate position. Intubation was performed via video laryngoscopy with an 7.5 mm endotracheal tube. ER Ttube secured at the lip at 23 cm.. Initial confirmation of placement included bilateral breath sounds, tube fogging, adequate chest rise, adequate pulse oximetry reading. A chest x-ray to verify correct placement of the tube showed appropriate tube position. The patient tolerated the procedure well. Complications: none. Course & Med Decision Making Course & Med Decision Making Pertinent Labs and Imaging studies reviewed. (See chart for details) [Patient on aggressive treatment and care of asthma exacerbation with medical therapy and BiPAP treatment. Patient intubated without complication. Pulmonology consult. Dr. Mendez in the ED for admission and orders. Dragon Disclaimer Dragon Disclaimer This electronic medical record was generated, in whole or in part, using a voice recognition dictation system. CONI CERVANTES DO Oct 28, 2016 20:01
[2016-10-28] MEDS ORDERED: FAMOTIDINE 20 MG/2 ML VIAL IVP SCH (21:00)
[2016-10-28] MEDS: ENOXAPARIN 40 MG/0.4 ML SYRINGE. SQ SCH (21:15)
[2016-10-29] VITALS (24 sets, daily range): BP systolic 117–199; BP diastolic 58–119
[2016-10-29] MEDS: methylPREDNISolone SOD SUCC PF 125 MG/2 ML VIAL. IV SCH ×3 (01:14→17:48)
[2016-10-29] MEDS: ALBUTEROL SULFATE 2.5 MG/3 ML NEBU. NEB PRN (03:11)
[2016-10-29] MEDS: PROPOFOL 100 ML IV PRN ×2 (03:41→06:27)
[2016-10-29 05:33] LABS: CALCIUM 9.8 mg/dL (8.5-10.1); CREATININE 0.8 mg/dL (0.6-1.0); GFR 94.3; POTASSIUM 4.4 mmol/L (3.5-5.1)
--- NOTE | 2016-10-29 07:26 | RAD ---
Indication: Respiratory failure. Time of exam 0615 hours. Correlation is made with prior study from 10/28/2016. The ET tube and NG tube remain in place. The heart size is stable. There is infiltrate or atelectasis in the left base. There is some minimal linear atelectasis right base. No effusion or pneumothorax is seen. The mid and upper lung burch are clear. Impression: Bibasilar infiltrate or atelectasis, left greater. This is similar to the examination one day earlier.
[2016-10-29] MEDS: POTASSIUM CL 20MEQ D5-0.45NACL 1,000 ML IV SCH (08:15)
[2016-10-29] MEDS: ENOXAPARIN 40 MG/0.4 ML SYRINGE. SQ SCH ×2 (08:16→21:30)
[2016-10-29 08:29] LABS: HCO3 ABG 22 mmol/L (21-28); PCO2 ABG 26 mmHg (35-46); PH ABG 7.53 (7.35-7.45); PO2 ABG 69 mmHg (75-108); SAT O2 ABG 96 % (92-99)
[2016-10-29 08:41] LABS: FIO2 ABG 30
[2016-10-29] MEDS: IPRATRPIUM/ALBUTEROL 0.5/2.5MG 3 ML NEBU. NEB SCH ×4 (08:44→19:54)
[2016-10-29 09:22] LABS: BASO % 0 % (0-3); EOS % 0 % (0-3); HEMATOCRIT 43.8 % (36.0-47.0); HEMOGLOBIN 14.9 g/dL (12.0-15.5); LYMPH # 2.2 x10^3/uL (1.0-4.8); LYMPH % 13 % (24-48); MEAN CORPUSCULAR HEMOGLOBIN 31 pg (25-35); MEAN CORPUSCULAR HGB CONC 34 g/dL (31-37); MEAN CORPUSCULAR VOLUME 90 fL (79-100); MONO % 2 % (0-9); NEUT % 85 % (31-73); PLATELET COUNT 299 x10^3/uL (140-400); RED BLOOD COUNT 4.86 x10^6/uL (3.50-5.40); RED CELL DISTRIBUTION WIDTH 13.8 % (11.5-14.5); WHITE BLOOD COUNT 16.4 x10^3/uL (4.0-11.0)
--- NOTE | 2016-10-29 11:16 | PDOC ---
PULMONARY PROGRESS NOTES Subjective INTUBATED, AWAKE ON CPAP TRIAL Vitals Vital Signs Date Time Temp Pulse Resp B/P (MAP) Pulse Ox O2 Delivery O2 Flow Rate FiO2 10/29/16 11:00 115 16 199/105 (136) 100 Ventilator 10/29/16 08:00 98.8 98.8 General: Alert, No acute distress Lungs: Clear Cardiovascular: S1 Abdomen: Soft Neuro Exam: Alert Extremities: No Edema Skin: Warm Labs Laboratory Tests Test 10/28/16 12:46 10/28/16 12:50 10/28/16 15:21 10/28/16 17:45 O2 Saturation 94 % (92-99) 93 % (92-99) 98 % (92-99) Arterial Blood pH 7.43 (7.35-7.45) 7.41 (7.35-7.45) 7.30 (7.35-7.45) Arterial Blood pCO2 at Patient Temp 36 mmHg (35-46) 34 mmHg (35-46) 42 mmHg (35-46) Arterial Blood pO2 at Patient Temp 69 mmHg (75-108) 67 mmHg (75-108) 123 mmHg (75-108) Arterial Blood HCO3 23 mmol/L (21-28) 21 mmol/L (21-28) 20 mmol/L (21-28) Arterial Blood Base Excess -1 mmol/L (-3-3) -3 mmol/L (-3-3) -6 mmol/L (-3-3) FiO2 21 21 40.0 White Blood Count 5.2 x10^3/uL (4.0-11.0) Red Blood Count 4.91 x10^6/uL (3.50-5.40) Hemoglobin 15.3 g/dL (12.0-15.5) Hematocrit 43.9 % (36.0-47.0) Mean Corpuscular Volume 90 fL (79-100) Mean Corpuscular Hemoglobin 31 pg (25-35) Mean Corpuscular Hemoglobin Concent 35 g/dL (31-37) Red Cell Distribution Width 13.6 % (11.5-14.5) Platelet Count 289 x10^3/uL (140-400) Neutrophils (%) (Auto) 43 % (31-73) Lymphocytes (%) (Auto) 47 % (24-48) Monocytes (%) (Auto) 9 % (0-9) Eosinophils (%) (Auto) 1 % (0-3) Basophils (%) (Auto) 0 % (0-3) Neutrophils # (Auto) 2.3 x10^3uL (1.8-7.7) Lymphocytes # (Auto) 2.4 x10^3/uL (1.0-4.8) Monocytes # (Auto) 0.5 x10^3/uL (0.0-1.1) Eosinophils # (Auto) 0.0 x10^3/uL (0.0-0.7) Basophils # (Auto) 0.0 x10^3/uL (0.0-0.2) Sodium Level 141 mmol/L (136-145) Potassium Level 3.4 mmol/L (3.5-5.1) Chloride Level 104 mmol/L (98-107) Carbon Dioxide Level 27 mmol/L (21-32) Anion Gap 10 (6-14) Blood Urea Nitrogen 9 mg/dL (7-20) Creatinine 1.0 mg/dL (0.6-1.0) Estimated GFR (Cockcroft-Gault) 72.9 BUN/Creatinine Ratio 9 (6-20) Glucose Level 127 mg/dL (70-99) Calcium Level 9.6 mg/dL (8.5-10.1) Total Bilirubin 0.5 mg/dL (0.2-1.0) Aspartate Amino Transf (AST/SGOT) 35 U/L (15-37) Alanine Aminotransferase (ALT/SGPT) 48 U/L (14-59) Alkaline Phosphatase 145 U/L (46-116) Troponin I Quantitative < 0.017 ng/mL (0.000-0.055) Total Protein 8.4 g/dL (6.4-8.2) Albumin 3.9 g/dL (3.4-5.0) Albumin/Globulin Ratio 0.9 (1.0-1.7) Test 10/29/16 04:00 10/29/16 08:00 10/29/16 08:40 Sodium Level 139 mmol/L (136-145) Potassium Level 4.4 mmol/L (3.5-5.1) Chloride Level 104 mmol/L (98-107) Carbon Dioxide Level 20 mmol/L (21-32) Anion Gap 15 (6-14) Blood Urea Nitrogen 10 mg/dL (7-20) Creatinine 0.8 mg/dL (0.6-1.0) Estimated GFR (Cockcroft-Gault) 94.3 Glucose Level 169 mg/dL (70-99) Calcium Level 9.8 mg/dL (8.5-10.1) O2 Saturation 96 % (92-99) Arterial Blood pH 7.53 (7.35-7.45) Arterial Blood pCO2 at Patient Temp 26 mmHg (35-46) Arterial Blood pO2 at Patient Temp 69 mmHg (75-108) Arterial Blood HCO3 22 mmol/L (21-28) Arterial Blood Base Excess 1 mmol/L (-3-3) FiO2 30 White Blood Count 16.4 x10^3/uL (4.0-11.0) Red Blood Count 4.86 x10^6/uL (3.50-5.40) Hemoglobin 14.9 g/dL (12.0-15.5) Hematocrit 43.8 % (36.0-47.0) Mean Corpuscular Volume 90 fL (79-100) Mean Corpuscular Hemoglobin 31 pg (25-35) Mean Corpuscular Hemoglobin Concent 34 g/dL (31-37) Red Cell Distribution Width 13.8 % (11.5-14.5) Platelet Count 299 x10^3/uL (140-400) Neutrophils (%) (Auto) 85 % (31-73) Lymphocytes (%) (Auto) 13 % (24-48) Monocytes (%) (Auto) 2 % (0-9) Eosinophils (%) (Auto) 0 % (0-3) Basophils (%) (Auto) 0 % (0-3) Neutrophils # (Auto) 13.9 x10^3uL (1.8-7.7) Lymphocytes # (Auto) 2.2 x10^3/uL (1.0-4.8) Monocytes # (Auto) 0.3 x10^3/uL (0.0-1.1) Eosinophils # (Auto) 0.0 x10^3/uL (0.0-0.7) Basophils # (Auto) 0.0 x10^3/uL (0.0-0.2) Laboratory Tests Test 10/28/16 12:46 10/28/16 12:50 10/28/16 15:21 10/28/16 17:45 O2 Saturation 94 % (92-99) 93 % (92-99) 98 % (92-99) Arterial Blood pH 7.43 (7.35-7.45) 7.41 (7.35-7.45) 7.30 (7.35-7.45) Arterial Blood pCO2 at Patient Temp 36 mmHg (35-46) 34 mmHg (35-46) 42 mmHg (35-46) Arterial Blood pO2 at Patient Temp 69 mmHg (75-108) 67 mmHg (75-108) 123 mmHg (75-108) Arterial Blood HCO3 23 mmol/L (21-28) 21 mmol/L (21-28) 20 mmol/L (21-28) Arterial Blood Base Excess -1 mmol/L (-3-3) -3 mmol/L (-3-3) -6 mmol/L (-3-3) FiO2 21 21 40.0 White Blood Count 5.2 x10^3/uL (4.0-11.0) Red Blood Count 4.91 x10^6/uL (3.50-5.40) Hemoglobin 15.3 g/dL (12.0-15.5) Hematocrit 43.9 % (36.0-47.0) Mean Corpuscular Volume 90 fL (79-100) Mean Corpuscular Hemoglobin 31 pg (25-35) Mean Corpuscular Hemoglobin Concent 35 g/dL (31-37) Red Cell Distribution Width 13.6 % (11.5-14.5) Platelet Count 289 x10^3/uL (140-400) Neutrophils (%) (Auto) 43 % (31-73) Lymphocytes (%) (Auto) 47 % (24-48) Monocytes (%) (Auto) 9 % (0-9) Eosinophils (%) (Auto) 1 % (0-3) Basophils (%) (Auto) 0 % (0-3) Neutrophils # (Auto) 2.3 x10^3uL (1.8-7.7) Lymphocytes # (Auto) 2.4 x10^3/uL (1.0-4.8) Monocytes # (Auto) 0.5 x10^3/uL (0.0-1.1) Eosinophils # (Auto) 0.0 x10^3/uL (0.0-0.7) Basophils # (Auto) 0.0 x10^3/uL (0.0-0.2) Sodium Level 141 mmol/L (136-145) Potassium Level 3.4 mmol/L (3.5-5.1) Chloride Level 104 mmol/L (98-107) Carbon Dioxide Level 27 mmol/L (21-32) Anion Gap 10 (6-14) Blood Urea Nitrogen 9 mg/dL (7-20) Creatinine 1.0 mg/dL (0.6-1.0) Estimated GFR (Cockcroft-Gault) 72.9 BUN/Creatinine Ratio 9 (6-20) Glucose Level 127 mg/dL (70-99) Calcium Level 9.6 mg/dL (8.5-10.1) Total Bilirubin 0.5 mg/dL (0.2-1.0) Aspartate Amino Transf (AST/SGOT) 35 U/L (15-37) Alanine Aminotransferase (ALT/SGPT) 48 U/L (14-59) Alkaline Phosphatase 145 U/L (46-116) Troponin I Quantitative < 0.017 ng/mL (0.000-0.055) Total Protein 8.4 g/dL (6.4-8.2) Albumin 3.9 g/dL (3.4-5.0) Albumin/Globulin Ratio 0.9 (1.0-1.7) Test 10/29/16 04:00 10/29/16 08:00 10/29/16 08:40 Sodium Level 139 mmol/L (136-145) Potassium Level 4.4 mmol/L (3.5-5.1) Chloride Level 104 mmol/L (98-107) Carbon Dioxide Level 20 mmol/L (21-32) Anion Gap 15 (6-14) Blood Urea Nitrogen 10 mg/dL (7-20) Creatinine 0.8 mg/dL (0.6-1.0) Estimated GFR (Cockcroft-Gault) 94.3 Glucose Level 169 mg/dL (70-99) Calcium Level 9.8 mg/dL (8.5-10.1) O2 Saturation 96 % (92-99) Arterial Blood pH 7.53 (7.35-7.45) Arterial Blood pCO2 at Patient Temp 26 mmHg (35-46) Arterial Blood pO2 at Patient Temp 69 mmHg (75-108) Arterial Blood HCO3 22 mmol/L (21-28) Arterial Blood Base Excess 1 mmol/L (-3-3) FiO2 30 White Blood Count 16.4 x10^3/uL (4.0-11.0) Red Blood Count 4.86 x10^6/uL (3.50-5.40) Hemoglobin 14.9 g/dL (12.0-15.5) Hematocrit 43.8 % (36.0-47.0) Mean Corpuscular Volume 90 fL (79-100) Mean Corpuscular Hemoglobin 31 pg (25-35) Mean Corpuscular Hemoglobin Concent 34 g/dL (31-37) Red Cell Distribution Width 13.8 % (11.5-14.5) Platelet Count 299 x10^3/uL (140-400) Neutrophils (%) (Auto) 85 % (31-73) Lymphocytes (%) (Auto) 13 % (24-48) Monocytes (%) (Auto) 2 % (0-9) Eosinophils (%) (Auto) 0 % (0-3) Basophils (%) (Auto) 0 % (0-3) Neutrophils # (Auto) 13.9 x10^3uL (1.8-7.7) Lymphocytes # (Auto) 2.2 x10^3/uL (1.0-4.8) Monocytes # (Auto) 0.3 x10^3/uL (0.0-1.1) Eosinophils # (Auto) 0.0 x10^3/uL (0.0-0.7) Basophils # (Auto) 0.0 x10^3/uL (0.0-0.2) Medications Active Scripts Medications Dose Route/Sig Max Daily Dose Days Date Category Ventolin Hfa Inhaler (Albuterol Sulfate) 18 Gm Hfa.aer.ad 2 Puff INH Q4HRS 04/22/16 Reported Lisinopril 40 Mg Tablet 1 Tab PO DAILY 04/22/16 Reported No Known Medications Prior To Admisstion (Info) Each 1 Each 05/19/13 Reported Impression . 1. ACUTE RF DUE TO 2. STATUS ASTHMATICUS 3. INHALATION OF TOXIC FUMES (AMMONIA/BLEACH) 4. CLEAR CXR 5. LEUKOCYTOSIS DUE TO STEROIDS Plan . 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
[2016-10-29] MEDS: LABETALOL 20 MG/4 ML DISP.SYRIN. IVP PRN (11:20)
--- NOTE | 2016-10-29 11:33 | PDOC ---
PROGRESS NOTES Chief Complaint Chief Complaint Acute hypoxic respir failure HTN urgency ASSESSMENT AND PLAN: 1. Asthma exacerbation: intubated. management as per Pulm service. cont steroids, nebs. 2. HTN urgency: hx of HTN, but not taking meds at home (financial/ no F/U). on PRN IV only; switch hydralazine to labetalol 3. DM2: borderline, prob unmasked by steroids. ISS for now, obtain HgbA1c 4. Hypokalemia: resolved 5. Prophylaxis: lovenox, H2B 6. Morbid obesity BMI 41 Vitals Vitals Vital Signs Date Time Temp Pulse Resp B/P (MAP) Pulse Ox O2 Delivery O2 Flow Rate FiO2 10/29/16 11:20 112 199/108 10/29/16 11:00 16 100 Ventilator 10/29/16 08:00 98.8 98.8 Physical Exam General: Other (intubed, sedated) Heart: Other (tachycardic) Lungs: Clear Abdomen: Normal bowel sounds, Soft, No tenderness Extremities: No clubbing, No cyanosis Skin: No rashes Labs LABS Laboratory Tests Test 10/28/16 12:46 10/28/16 12:50 10/28/16 15:21 10/28/16 17:45 O2 Saturation 94 % (92-99) 93 % (92-99) 98 % (92-99) Arterial Blood pH 7.43 (7.35-7.45) 7.41 (7.35-7.45) 7.30 (7.35-7.45) Arterial Blood pCO2 at Patient Temp 36 mmHg (35-46) 34 mmHg (35-46) 42 mmHg (35-46) Arterial Blood pO2 at Patient Temp 69 mmHg (75-108) 67 mmHg (75-108) 123 mmHg (75-108) Arterial Blood HCO3 23 mmol/L (21-28) 21 mmol/L (21-28) 20 mmol/L (21-28) Arterial Blood Base Excess -1 mmol/L (-3-3) -3 mmol/L (-3-3) -6 mmol/L (-3-3) FiO2 21 21 40.0 White Blood Count 5.2 x10^3/uL (4.0-11.0) Red Blood Count 4.91 x10^6/uL (3.50-5.40) Hemoglobin 15.3 g/dL (12.0-15.5) Hematocrit 43.9 % (36.0-47.0) Mean Corpuscular Volume 90 fL (79-100) Mean Corpuscular Hemoglobin 31 pg (25-35) Mean Corpuscular Hemoglobin Concent 35 g/dL (31-37) Red Cell Distribution Width 13.6 % (11.5-14.5) Platelet Count 289 x10^3/uL (140-400) Neutrophils (%) (Auto) 43 % (31-73) Lymphocytes (%) (Auto) 47 % (24-48) Monocytes (%) (Auto) 9 % (0-9) Eosinophils (%) (Auto) 1 % (0-3) Basophils (%) (Auto) 0 % (0-3) Neutrophils # (Auto) 2.3 x10^3uL (1.8-7.7) Lymphocytes # (Auto) 2.4 x10^3/uL (1.0-4.8) Monocytes # (Auto) 0.5 x10^3/uL (0.0-1.1) Eosinophils # (Auto) 0.0 x10^3/uL (0.0-0.7) Basophils # (Auto) 0.0 x10^3/uL (0.0-0.2) Sodium Level 141 mmol/L (136-145) Potassium Level 3.4 mmol/L (3.5-5.1) Chloride Level 104 mmol/L (98-107) Carbon Dioxide Level 27 mmol/L (21-32) Anion Gap 10 (6-14) Blood Urea Nitrogen 9 mg/dL (7-20) Creatinine 1.0 mg/dL (0.6-1.0) Estimated GFR (Cockcroft-Gault) 72.9 BUN/Creatinine Ratio 9 (6-20) Glucose Level 127 mg/dL (70-99) Calcium Level 9.6 mg/dL (8.5-10.1) Total Bilirubin 0.5 mg/dL (0.2-1.0) Aspartate Amino Transf (AST/SGOT) 35 U/L (15-37) Alanine Aminotransferase (ALT/SGPT) 48 U/L (14-59) Alkaline Phosphatase 145 U/L (46-116) Troponin I Quantitative < 0.017 ng/mL (0.000-0.055) Total Protein 8.4 g/dL (6.4-8.2) Albumin 3.9 g/dL (3.4-5.0) Albumin/Globulin Ratio 0.9 (1.0-1.7) Test 10/29/16 04:00 10/29/16 08:00 10/29/16 08:40 Sodium Level 139 mmol/L (136-145) Potassium Level 4.4 mmol/L (3.5-5.1) Chloride Level 104 mmol/L (98-107) Carbon Dioxide Level 20 mmol/L (21-32) Anion Gap 15 (6-14) Blood Urea Nitrogen 10 mg/dL (7-20) Creatinine 0.8 mg/dL (0.6-1.0) Estimated GFR (Cockcroft-Gault) 94.3 Glucose Level 169 mg/dL (70-99) Calcium Level 9.8 mg/dL (8.5-10.1) O2 Saturation 96 % (92-99) Arterial Blood pH 7.53 (7.35-7.45) Arterial Blood pCO2 at Patient Temp 26 mmHg (35-46) Arterial Blood pO2 at Patient Temp 69 mmHg (75-108) Arterial Blood HCO3 22 mmol/L (21-28) Arterial Blood Base Excess 1 mmol/L (-3-3) FiO2 30 White Blood Count 16.4 x10^3/uL (4.0-11.0) Red Blood Count 4.86 x10^6/uL (3.50-5.40) Hemoglobin 14.9 g/dL (12.0-15.5) Hematocrit 43.8 % (36.0-47.0) Mean Corpuscular Volume 90 fL (79-100) Mean Corpuscular Hemoglobin 31 pg (25-35) Mean Corpuscular Hemoglobin Concent 34 g/dL (31-37) Red Cell Distribution Width 13.8 % (11.5-14.5) Platelet Count 299 x10^3/uL (140-400) Neutrophils (%) (Auto) 85 % (31-73) Lymphocytes (%) (Auto) 13 % (24-48) Monocytes (%) (Auto) 2 % (0-9) Eosinophils (%) (Auto) 0 % (0-3) Basophils (%) (Auto) 0 % (0-3) Neutrophils # (Auto) 13.9 x10^3uL (1.8-7.7) Lymphocytes # (Auto) 2.2 x10^3/uL (1.0-4.8) Monocytes # (Auto) 0.3 x10^3/uL (0.0-1.1) Eosinophils # (Auto) 0.0 x10^3/uL (0.0-0.7) Basophils # (Auto) 0.0 x10^3/uL (0.0-0.2) WILLIAM RUSSO MD Oct 29, 2016 11:33
[2016-10-29 11:57] LABS: FIO2 ABG 30; HCO3 ABG 20 mmol/L (21-28); PCO2 ABG 26 mmHg (35-46); PO2 ABG 70 mmHg (75-108); SAT O2 ABG 96 % (92-99)
[2016-10-29] MEDS: FAMOTIDINE 20 MG/2 ML VIAL IVP SCH ×2 (12:46→21:31)
[2016-10-29 13:05] LABS: PLT ESTIMATE ADEQUATE (ADEQUATE)
[2016-10-29] MEDS: MORPHINE SULFATE 2 MG/ML DISP.SYRIN. IV PRN (13:14)
[2016-10-29 17:39] LABS: PH ABG 7.52 (7.35-7.45)
[2016-10-29] MEDS: traMADol 50 MG TABLET PO PRN (19:34)
[2016-10-30] VITALS (13 sets, daily range): BP systolic 110–143; BP diastolic 64–89
[2016-10-30] MEDS: methylPREDNISolone SOD SUCC PF 125 MG/2 ML VIAL. IV SCH ×3 (01:18→17:05)
[2016-10-30] MEDS: IPRATRPIUM/ALBUTEROL 0.5/2.5MG 3 ML NEBU. NEB SCH ×4 (07:47→20:02)
[2016-10-30] MEDS: FAMOTIDINE 20 MG/2 ML VIAL IVP SCH ×2 (08:14→21:45)
[2016-10-30] MEDS: traMADol 50 MG TABLET PO PRN (08:14)
[2016-10-30] MEDS: ENOXAPARIN 40 MG/0.4 ML SYRINGE. SQ SCH ×2 (08:14→21:46)
--- NOTE | 2016-10-30 10:17 | PDOC ---
PULMONARY PROGRESS NOTES Subjective EXTUBATED 10/29 Vitals Vital Signs Date Time Temp Pulse Resp B/P (MAP) Pulse Ox O2 Delivery O2 Flow Rate FiO2 10/30/16 09:14 Room Air 10/30/16 08:00 97.8 96 20 135/81 (99) 98 97.8 10/29/16 14:00 1.0 General: Alert, No acute distress Lungs: Other (OCC WHEEZES) Cardiovascular: S1 Abdomen: Soft Neuro Exam: Alert Extremities: No Edema Skin: Warm Labs Laboratory Tests Test 10/28/16 12:46 10/28/16 12:50 10/28/16 15:21 10/28/16 17:45 O2 Saturation 94 % (92-99) 93 % (92-99) 98 % (92-99) Arterial Blood pH 7.43 (7.35-7.45) 7.41 (7.35-7.45) 7.30 (7.35-7.45) Arterial Blood pCO2 at Patient Temp 36 mmHg (35-46) 34 mmHg (35-46) 42 mmHg (35-46) Arterial Blood pO2 at Patient Temp 69 mmHg (75-108) 67 mmHg (75-108) 123 mmHg (75-108) Arterial Blood HCO3 23 mmol/L (21-28) 21 mmol/L (21-28) 20 mmol/L (21-28) Arterial Blood Base Excess -1 mmol/L (-3-3) -3 mmol/L (-3-3) -6 mmol/L (-3-3) FiO2 21 21 40.0 White Blood Count 5.2 x10^3/uL (4.0-11.0) Red Blood Count 4.91 x10^6/uL (3.50-5.40) Hemoglobin 15.3 g/dL (12.0-15.5) Hematocrit 43.9 % (36.0-47.0) Mean Corpuscular Volume 90 fL (79-100) Mean Corpuscular Hemoglobin 31 pg (25-35) Mean Corpuscular Hemoglobin Concent 35 g/dL (31-37) Red Cell Distribution Width 13.6 % (11.5-14.5) Platelet Count 289 x10^3/uL (140-400) Neutrophils (%) (Auto) 43 % (31-73) Lymphocytes (%) (Auto) 47 % (24-48) Monocytes (%) (Auto) 9 % (0-9) Eosinophils (%) (Auto) 1 % (0-3) Basophils (%) (Auto) 0 % (0-3) Neutrophils # (Auto) 2.3 x10^3uL (1.8-7.7) Lymphocytes # (Auto) 2.4 x10^3/uL (1.0-4.8) Monocytes # (Auto) 0.5 x10^3/uL (0.0-1.1) Eosinophils # (Auto) 0.0 x10^3/uL (0.0-0.7) Basophils # (Auto) 0.0 x10^3/uL (0.0-0.2) Sodium Level 141 mmol/L (136-145) Potassium Level 3.4 mmol/L (3.5-5.1) Chloride Level 104 mmol/L (98-107) Carbon Dioxide Level 27 mmol/L (21-32) Anion Gap 10 (6-14) Blood Urea Nitrogen 9 mg/dL (7-20) Creatinine 1.0 mg/dL (0.6-1.0) Estimated GFR (Cockcroft-Gault) 72.9 BUN/Creatinine Ratio 9 (6-20) Glucose Level 127 mg/dL (70-99) Calcium Level 9.6 mg/dL (8.5-10.1) Total Bilirubin 0.5 mg/dL (0.2-1.0) Aspartate Amino Transf (AST/SGOT) 35 U/L (15-37) Alanine Aminotransferase (ALT/SGPT) 48 U/L (14-59) Alkaline Phosphatase 145 U/L (46-116) Troponin I Quantitative < 0.017 ng/mL (0.000-0.055) Total Protein 8.4 g/dL (6.4-8.2) Albumin 3.9 g/dL (3.4-5.0) Albumin/Globulin Ratio 0.9 (1.0-1.7) Test 10/28/16 20:55 10/29/16 04:00 10/29/16 08:00 10/29/16 08:40 Nasal Screen MRSA (PCR) Negative (Negative) Sodium Level 139 mmol/L (136-145) Potassium Level 4.4 mmol/L (3.5-5.1) Chloride Level 104 mmol/L (98-107) Carbon Dioxide Level 20 mmol/L (21-32) Anion Gap 15 (6-14) Blood Urea Nitrogen 10 mg/dL (7-20) Creatinine 0.8 mg/dL (0.6-1.0) Estimated GFR (Cockcroft-Gault) 94.3 Glucose Level 169 mg/dL (70-99) Calcium Level 9.8 mg/dL (8.5-10.1) Magnesium Level 2.5 mg/dL (1.8-2.4) O2 Saturation 96 % (92-99) Arterial Blood pH 7.53 (7.35-7.45) Arterial Blood pCO2 at Patient Temp 26 mmHg (35-46) Arterial Blood pO2 at Patient Temp 69 mmHg (75-108) Arterial Blood HCO3 22 mmol/L (21-28) Arterial Blood Base Excess 1 mmol/L (-3-3) FiO2 30 White Blood Count 16.4 x10^3/uL (4.0-11.0) Red Blood Count 4.86 x10^6/uL (3.50-5.40) Hemoglobin 14.9 g/dL (12.0-15.5) Hematocrit 43.8 % (36.0-47.0) Mean Corpuscular Volume 90 fL (79-100) Mean Corpuscular Hemoglobin 31 pg (25-35) Mean Corpuscular Hemoglobin Concent 34 g/dL (31-37) Red Cell Distribution Width 13.8 % (11.5-14.5) Platelet Count 299 x10^3/uL (140-400) Neutrophils (%) (Auto) 85 % (31-73) Lymphocytes (%) (Auto) 13 % (24-48) Monocytes (%) (Auto) 2 % (0-9) Eosinophils (%) (Auto) 0 % (0-3) Basophils (%) (Auto) 0 % (0-3) Neutrophils # (Auto) 13.9 x10^3uL (1.8-7.7) Lymphocytes # (Auto) 2.2 x10^3/uL (1.0-4.8) Monocytes # (Auto) 0.3 x10^3/uL (0.0-1.1) Eosinophils # (Auto) 0.0 x10^3/uL (0.0-0.7) Basophils # (Auto) 0.0 x10^3/uL (0.0-0.2) Segmented Neutrophils % 86 % (35-66) Band Neutrophils % 5 % (0-9) Lymphocytes % 8 % (24-48) Monocytes % 1 % (0-10) Platelet Estimate Adequate (ADEQUATE) Test 10/29/16 11:15 O2 Saturation 96 % (92-99) Arterial Blood pH 7.52 (7.35-7.45) Arterial Blood pCO2 at Patient Temp 26 mmHg (35-46) Arterial Blood pO2 at Patient Temp 70 mmHg (75-108) Arterial Blood HCO3 20 mmol/L (21-28) Arterial Blood Base Excess -1 mmol/L (-3-3) FiO2 30 Laboratory Tests Test 10/29/16 11:15 O2 Saturation 96 % (92-99) Arterial Blood pH 7.52 (7.35-7.45) Arterial Blood pCO2 at Patient Temp 26 mmHg (35-46) Arterial Blood pO2 at Patient Temp 70 mmHg (75-108) Arterial Blood HCO3 20 mmol/L (21-28) Arterial Blood Base Excess -1 mmol/L (-3-3) FiO2 30 Medications Active Scripts Medications Dose Route/Sig Max Daily Dose Days Date Category Ventolin Hfa Inhaler (Albuterol Sulfate) 18 Gm Hfa.aer.ad 2 Puff INH Q4HRS 04/22/16 Reported Lisinopril 40 Mg Tablet 1 Tab PO DAILY 04/22/16 Reported No Known Medications Prior To Admisstion (Info) Each 1 Each 05/19/13 Reported Impression . 1. ACUTE RF DUE TO STATUS ASTHMATICUS. EXTUBATED 10/29. 2. STATUS ASTHMATICUS, RESOLVED 3. INHALATION OF TOXIC FUMES (AMMONIA/BLEACH) 4. CXR WITH BASAL ATELECTASIS 5. LEUKOCYTOSIS DUE TO STEROIDS Plan . EXTUBATED 10/29 DOING WELL STEROIDS TAPER NEBS, D/W DR RASMUSSEN WILL SEE HER PRN BASIS ONCE D/C , SHE CAN SKY CAP SOME SAMPLES OF INHALERS FROM MY OFFICE, THEY HAVE APPLIED FOR FREE MED AND DID NOT QUALIFY TALI QUICK MD Oct 30, 2016 10:17
[2016-10-30 10:48] LABS: CALCIUM 9.2 mg/dL (8.5-10.1); GFR 72.9; POTASSIUM 4.7 mmol/L (3.5-5.1)
--- NOTE | 2016-10-30 12:40 | PDOC ---
PROGRESS NOTES Chief Complaint Chief Complaint Acute hypoxic respir failure HTN urgency ASSESSMENT AND PLAN: 1. Asthma exacerbation: successfully extubated yesterday. still a bit short winded, but tolerating NC O2. cont steroids (change to PO in AM), nebs. 2. HTN urgency: hx of HTN, but not taking meds at home (financial/ no F/U). restart lisinopril. labetalol IV PRN 3. DM2: borderline, prob unmasked by steroids. ISS for now, HgbA1c pending 4. Hypokalemia: resolved 5. Prophylaxis: lovenox, H2B 6. Morbid obesity BMI 41 Vitals Vitals Vital Signs Date Time Temp Pulse Resp B/P (MAP) Pulse Ox O2 Delivery O2 Flow Rate FiO2 10/30/16 11:27 100 Room Air 10/30/16 08:00 97.8 96 20 135/81 (99) 97.8 10/29/16 14:00 1.0 Physical Exam General: Alert, Oriented X3, Cooperative, mild distress Heart: Regular rate, Other (tachycardic) Lungs: Clear Abdomen: Normal bowel sounds, Soft, No tenderness Extremities: No clubbing, No cyanosis Skin: No rashes Labs LABS Laboratory Tests Test 10/30/16 09:40 Sodium Level 139 mmol/L (136-145) Potassium Level 4.7 mmol/L (3.5-5.1) Chloride Level 105 mmol/L (98-107) Carbon Dioxide Level 28 mmol/L (21-32) Anion Gap 6 (6-14) Blood Urea Nitrogen 18 mg/dL (7-20) Creatinine 1.0 mg/dL (0.6-1.0) Estimated GFR (Cockcroft-Gault) 72.9 Glucose Level 178 mg/dL (70-99) Calcium Level 9.2 mg/dL (8.5-10.1) WILLIAM RUSSO MD Oct 30, 2016 12:40
[2016-10-30] MEDS: LISINOPRIL 40 MG TABLET. PO SCH (14:46)
[2016-10-30] MEDS: MORPHINE SULFATE 2 MG/ML DISP.SYRIN. IV PRN (14:52)
[2016-10-31] MEDS: methylPREDNISolone SOD SUCC PF 125 MG/2 ML VIAL. IV SCH ×3 (01:13→18:06)
[2016-10-31 04:20] VITALS: BP 131/86
[2016-10-31 06:44] LABS: BASO % 0 % (0-3); EOS % 0 % (0-3); HEMATOCRIT 40.1 % (36.0-47.0); HEMOGLOBIN 13.4 g/dL (12.0-15.5); LYMPH # 2.1 x10^3/uL (1.0-4.8); LYMPH % 11 % (24-48); MEAN CORPUSCULAR HEMOGLOBIN 31 pg (25-35); MEAN CORPUSCULAR HGB CONC 33 g/dL (31-37); MEAN CORPUSCULAR VOLUME 92 fL (79-100); MONO % 4 % (0-9); NEUT % 85 % (31-73); PLATELET COUNT 265 x10^3/uL (140-400); RED BLOOD COUNT 4.36 x10^6/uL (3.50-5.40); RED CELL DISTRIBUTION WIDTH 14.3 % (11.5-14.5)
[2016-10-31 07:19] LABS: CALCIUM 9.2 mg/dL (8.5-10.1); CREATININE 0.9 mg/dL (0.6-1.0); GFR 82.3; POTASSIUM 4.2 mmol/L (3.5-5.1)
[2016-10-31 07:28] VITALS: BP 149/71
[2016-10-31] MEDS: LISINOPRIL 40 MG TABLET. PO SCH (07:49)
[2016-10-31] MEDS: FAMOTIDINE 20 MG TABLET. PO SCH ×2 (07:49→20:29)
[2016-10-31] MEDS: MORPHINE SULFATE 2 MG/ML DISP.SYRIN. IV PRN ×3 (07:50→18:07)
[2016-10-31] MEDS: IPRATRPIUM/ALBUTEROL 0.5/2.5MG 3 ML NEBU. NEB SCH ×4 (07:54→19:09)
[2016-10-31] MEDS: ENOXAPARIN 40 MG/0.4 ML SYRINGE. SQ SCH ×2 (07:55→20:30)
--- NOTE | 2016-10-31 09:12 | PDOC ---
PROGRESS NOTES Chief Complaint Chief Complaint Acute hypoxic respir failure HTN urgency ASSESSMENT AND PLAN: 1. Asthma exacerbation: intubated until 10/29 2. HTN urgency: hx noncompliance, restarted lisinopri 3. DM2: borderline, 4. Hypokalemia: resolved 5. Prophylaxis: lovenox, H2B 6. Morbid obesity BMI 41 History of Present Illness History of Present Illness peak flow 180 still tachypneic very dyspneic with walking she is unable to be discharged, still needs aggressive nebs and treatment Vitals Vitals Vital Signs Date Time Temp Pulse Resp B/P (MAP) Pulse Ox O2 Delivery O2 Flow Rate FiO2 10/31/16 07:57 97 Room Air 10/31/16 07:49 61 149/71 10/31/16 07:28 97.8 20 97.8 10/30/16 15:30 1.0 Physical Exam General: Alert, Oriented X3, Cooperative, mild distress Heart: Regular rate, Other (tachycardic) Lungs: Wheezing (low volume, , some straining, excessory muscles) Abdomen: Normal bowel sounds, Soft, No tenderness Extremities: No clubbing, No cyanosis Skin: No rashes Labs LABS Laboratory Tests Test 10/30/16 09:40 10/31/16 05:32 Sodium Level 139 mmol/L (136-145) 139 mmol/L (136-145) Potassium Level 4.7 mmol/L (3.5-5.1) 4.2 mmol/L (3.5-5.1) Chloride Level 105 mmol/L (98-107) 104 mmol/L (98-107) Carbon Dioxide Level 28 mmol/L (21-32) 28 mmol/L (21-32) Anion Gap 6 (6-14) 7 (6-14) Blood Urea Nitrogen 18 mg/dL (7-20) 22 mg/dL (7-20) Creatinine 1.0 mg/dL (0.6-1.0) 0.9 mg/dL (0.6-1.0) Estimated GFR (Cockcroft-Gault) 72.9 82.3 Glucose Level 178 mg/dL (70-99) 129 mg/dL (70-99) Hemoglobin A1c 5.7 % (4.8-5.6) Calcium Level 9.2 mg/dL (8.5-10.1) 9.2 mg/dL (8.5-10.1) White Blood Count 18.0 x10^3/uL (4.0-11.0) Red Blood Count 4.36 x10^6/uL (3.50-5.40) Hemoglobin 13.4 g/dL (12.0-15.5) Hematocrit 40.1 % (36.0-47.0) Mean Corpuscular Volume 92 fL (79-100) Mean Corpuscular Hemoglobin 31 pg (25-35) Mean Corpuscular Hemoglobin Concent 33 g/dL (31-37) Red Cell Distribution Width 14.3 % (11.5-14.5) Platelet Count 265 x10^3/uL (140-400) Neutrophils (%) (Auto) 85 % (31-73) Lymphocytes (%) (Auto) 11 % (24-48) Monocytes (%) (Auto) 4 % (0-9) Eosinophils (%) (Auto) 0 % (0-3) Basophils (%) (Auto) 0 % (0-3) Neutrophils # (Auto) 15.2 x10^3uL (1.8-7.7) Lymphocytes # (Auto) 2.1 x10^3/uL (1.0-4.8) Monocytes # (Auto) 0.7 x10^3/uL (0.0-1.1) Eosinophils # (Auto) 0.0 x10^3/uL (0.0-0.7) Basophils # (Auto) 0.0 x10^3/uL (0.0-0.2) Review of Systems Review of Systems dyspnea,l and cough and weakness Assessment and Plan Assessmemt and Plan Problems Medical Problems: (1) Acute respiratory failure Status: Acute (2) Asthma exacerbation attacks Status: Acute Problems: Comment Review of Relevant I have reviewed the following items monserrat (where applicable) has been applied. Labs Laboratory Tests Test 10/29/16 11:15 10/30/16 09:40 10/31/16 05:32 O2 Saturation 96 % (92-99) Arterial Blood pH 7.52 (7.35-7.45) Arterial Blood pCO2 at Patient Temp 26 mmHg (35-46) Arterial Blood pO2 at Patient Temp 70 mmHg (75-108) Arterial Blood HCO3 20 mmol/L (21-28) Arterial Blood Base Excess -1 mmol/L (-3-3) FiO2 30 Sodium Level 139 mmol/L (136-145) 139 mmol/L (136-145) Potassium Level 4.7 mmol/L (3.5-5.1) 4.2 mmol/L (3.5-5.1) Chloride Level 105 mmol/L (98-107) 104 mmol/L (98-107) Carbon Dioxide Level 28 mmol/L (21-32) 28 mmol/L (21-32) Anion Gap 6 (6-14) 7 (6-14) Blood Urea Nitrogen 18 mg/dL (7-20) 22 mg/dL (7-20) Creatinine 1.0 mg/dL (0.6-1.0) 0.9 mg/dL (0.6-1.0) Estimated GFR (Cockcroft-Gault) 72.9 82.3 Glucose Level 178 mg/dL (70-99) 129 mg/dL (70-99) Hemoglobin A1c 5.7 % (4.8-5.6) Calcium Level 9.2 mg/dL (8.5-10.1) 9.2 mg/dL (8.5-10.1) White Blood Count 18.0 x10^3/uL (4.0-11.0) Red Blood Count 4.36 x10^6/uL (3.50-5.40) Hemoglobin 13.4 g/dL (12.0-15.5) Hematocrit 40.1 % (36.0-47.0) Mean Corpuscular Volume 92 fL (79-100) Mean Corpuscular Hemoglobin 31 pg (25-35) Mean Corpuscular Hemoglobin Concent 33 g/dL (31-37) Red Cell Distribution Width 14.3 % (11.5-14.5) Platelet Count 265 x10^3/uL (140-400) Neutrophils (%) (Auto) 85 % (31-73) Lymphocytes (%) (Auto) 11 % (24-48) Monocytes (%) (Auto) 4 % (0-9) Eosinophils (%) (Auto) 0 % (0-3) Basophils (%) (Auto) 0 % (0-3) Neutrophils # (Auto) 15.2 x10^3uL (1.8-7.7) Lymphocytes # (Auto) 2.1 x10^3/uL (1.0-4.8) Monocytes # (Auto) 0.7 x10^3/uL (0.0-1.1) Eosinophils # (Auto) 0.0 x10^3/uL (0.0-0.7) Basophils # (Auto) 0.0 x10^3/uL (0.0-0.2) Laboratory Tests Test 10/30/16 09:40 10/31/16 05:32 Sodium Level 139 mmol/L (136-145) 139 mmol/L (136-145) Potassium Level 4.7 mmol/L (3.5-5.1) 4.2 mmol/L (3.5-5.1) Chloride Level 105 mmol/L (98-107) 104 mmol/L (98-107) Carbon Dioxide Level 28 mmol/L (21-32) 28 mmol/L (21-32) Anion Gap 6 (6-14) 7 (6-14) Blood Urea Nitrogen 18 mg/dL (7-20) 22 mg/dL (7-20) Creatinine 1.0 mg/dL (0.6-1.0) 0.9 mg/dL (0.6-1.0) Estimated GFR (Cockcroft-Gault) 72.9 82.3 Glucose Level 178 mg/dL (70-99) 129 mg/dL (70-99) Hemoglobin A1c 5.7 % (4.8-5.6) Calcium Level 9.2 mg/dL (8.5-10.1) 9.2 mg/dL (8.5-10.1) White Blood Count 18.0 x10^3/uL (4.0-11.0) Red Blood Count 4.36 x10^6/uL (3.50-5.40) Hemoglobin 13.4 g/dL (12.0-15.5) Hematocrit 40.1 % (36.0-47.0) Mean Corpuscular Volume 92 fL (79-100) Mean Corpuscular Hemoglobin 31 pg (25-35) Mean Corpuscular Hemoglobin Concent 33 g/dL (31-37) Red Cell Distribution Width 14.3 % (11.5-14.5) Platelet Count 265 x10^3/uL (140-400) Neutrophils (%) (Auto) 85 % (31-73) Lymphocytes (%) (Auto) 11 % (24-48) Monocytes (%) (Auto) 4 % (0-9) Eosinophils (%) (Auto) 0 % (0-3) Basophils (%) (Auto) 0 % (0-3) Neutrophils # (Auto) 15.2 x10^3uL (1.8-7.7) Lymphocytes # (Auto) 2.1 x10^3/uL (1.0-4.8) Monocytes # (Auto) 0.7 x10^3/uL (0.0-1.1) Eosinophils # (Auto) 0.0 x10^3/uL (0.0-0.7) Basophils # (Auto) 0.0 x10^3/uL (0.0-0.2) Microbiology 10/28/16 Blood Culture - Preliminary, Resulted NO GROWTH AFTER 2 DAYS Medications Current Medications Albuterol Sulfate (Ventolin Neb Soln) 10 mg 1X ONCE CONT NEB Last administered on 10/28/16 12:52; Start 10/28/16 at 13:00; Stop 10/28/16 at 13:01 ; Status DC Ipratropium [place] (Atrovent) 0.5 mg 1X ONCE NEB Last administered on 13:02; Start 10/28/16 at 13:00; Stop 10/28/16 at 13:01; Status DC Methylprednisolone Sodium Succinate (SOLU-Medrol 125MG VIAL) 125 mg 1X ONCE IV Last administered on 10/28/16 13:26; Start 10/28/16 at 13:00; Stop 10/28/16 at 13:01; Status DC Lorazepam (Ativan) 1 mg 1X ONCE IV Last administered on 10/28/16 13:20; Start 10/28/16 at 13:00; Stop 10/28/16 at 13:01; Status DC Magnesium Sulfate/ Dextrose 100 ml @ 100 mls/hr 1X ONCE IV Last administered on 10/28/16 15:00; Start 10/28/16 at 14:30; Stop 10/28/16 at 15:29; Status DC Epinephrine HCl (Adrenalin) 0.5 mg 1X ONCE SQ Last administered on 10/28/16 14:58; Start 10/28/16 at 14:30; Stop 10/28/16 at 14:31; Status DC Ketamine HCl 100 mg 1X ONCE IV Last administered on 10/28/16 14:55; Start at 14:45; Stop 10/28/16 at 14:46; Status DC Albuterol Sulfate (Ventolin Neb Soln) 10 mg 1X ONCE CONT NEB Last administered on 10/28/16 15:47; Start 10/28/16 at 15:45; Stop 10/28/16 at 15:46 ; Status DC Ipratropium [place] (Atrovent) 0.5 mg 1X ONCE NEB Last administered on 15:47; Start 10/28/16 at 15:45; Stop 10/28/16 at 15:46; Status DC Acetaminophen (Tylenol) 650 mg PRN Q6HRS PRN PO FEVER; Start 10/28/16 at 16:45 Ondansetron HCl (Zofran) 4 mg PRN Q6HRS PRN IV NAUSEA/VOMITING; Start 10/28/16 at 16:45 Morphine Sulfate 2 mg PRN Q2HR PRN IV PAIN Last administered on 10/31/16 07:50 ; Start 10/28/16 at 16:45 Tramadol HCl (Ultram) 50 mg PRN Q6HRS PRN PO PAIN Last administered on 08:14; Start 10/28/16 at 16:45 Hydralazine HCl (Apresoline) 10 mg PRN Q4HRS PRN IVP ELEVATED BP, SEE COMMENTS Last administered on 10/29/16 08:38; Start 10/28/16 at 16:45; Stop 10/29/16 at 10:31; Status DC Docusate Sodium (Colace) 100 mg PRN DAILY PRN PO CONSTIPATION; Start 10/28/16 at 16:45 Albuterol/ Ipratropium (Duoneb) 3 ml RTQID NEB Last administered on 10/31/16 07:54; Start 10/28/16 at 20:00 Albuterol Sulfate (Ventolin Neb Soln) 2.5 mg PRN Q2HR PRN NEB SHORTNESS OF BREATH Last administered on 10/29/16 03:11; Start 10/28/16 at 16:45 Guaifenesin (Mucinex) 600 mg BID PO ; Start 10/28/16 at 21:00; Stop 10/28/16 at 21:00; Status DC Propofol 50 ml @ As Directed STK-MED ONCE IV ; Start 10/28/16 at 16:37; Stop at 16:38; Status DC Methylprednisolone Sodium Succinate (SOLU-Medrol 125MG VIAL) 60 mg Q8H IV Last administered on 10/28/16 18:13; Start 10/28/16 at 17:00; Stop 10/28/16 at 18:20 ; Status DC Enoxaparin Sodium (Lovenox 40mg Syringe) 40 mg Q12H SQ Last administered on 07:55; Start 10/28/16 at 21:00 Potassium Chloride 100 ml @ 100 mls/hr Q1H IV Last administered on 10/28/16 21:14; Start 10/28/16 at 17:00; Stop 10/28/16 at 18:59; Status DC Potassium Chloride/Dextrose/ Sod Cl 1,000 ml @ 75 mls/hr [id number] IV Last administered on 10/29/16 08:15; Start 10/28/16 at 17:00; Stop 10/29/16 at 18:36 ; Status DC Propofol 100 ml @ 0 mls/hr CONT PRN IV PER PROTOCOL Last administered on 06:27; Start 10/28/16 at 17:00; Stop 10/30/16 at 10:57; Status DC Ondansetron HCl (Zofran) 4 mg PRN Q8HRS PRN IV NAUSEA/VOMITING; Start 10/28/16 at 17:15; Stop 10/29/16 at 17:14; Status DC Methylprednisolone Sodium Succinate (SOLU-Medrol 125MG VIAL) 62.5 mg Q6HRS IV ; Start 10/28/16 at 18:00; Stop 10/28/16 at 18:00; Status DC Rocuronium [place] (Zemuron) 50 mg 1X ONCE IV Last administered on 10/28/16 16:40; Start 10/28/16 at 17:45; Stop 10/28/16 at 17:51; Status DC Ketamine HCl 400 mg 1X ONCE IV Last administered on 10/28/16 16:39; Start at 17:45; Stop 10/28/16 at 17:51; Status DC Methylprednisolone Sodium Succinate (SOLU-Medrol 125MG VIAL) 125 mg Q8H IV Last administered on 10/30/16 08:13; Start 10/29/16 at 01:00; Stop 10/30/16 at 10:18; Status DC Famotidine (Pepcid) 20 mg QHS IVP Last administered on 10/28/16 21:14; Start 10/28/16 at 21:00; Stop 10/29/16 at 12:25; Status DC Labetalol HCl (Normodyne) 20 mg PRN Q6HRS PRN IVP HYPERTENSION, SEE COMMENTS Last administered on 10/29/16 11:20; Start 10/29/16 at 10:30 Famotidine (Pepcid) 20 mg BID IVP Last administered on 10/30/16 21:45; Start 10/29/16 at 12:00; Stop 10/31/16 at 06:03; Status DC Methylprednisolone Sodium Succinate (SOLU-Medrol 125MG VIAL) 60 mg Q8H IV Last administered on 10/31/16 07:49; Start 10/30/16 at 17:00 Lisinopril (Prinivil) 40 mg DAILY PO Last administered on 10/31/16 07:49; Start 10/30/16 at 13:00 Famotidine (Pepcid) 20 mg BID PO Last administered on 10/31/16 07:49; Start at 09:00 Active Scripts Active Reported Ventolin Hfa Inhaler (Albuterol Sulfate) 18 Gm Hfa.aer.ad 2 Puff INH Q4HRS Lisinopril 40 Mg Tablet 1 Tab PO DAILY No Known Medications Prior To Admisstion (Info) Each 1 Each Vitals/I & O Vital Sign - Last 24 Hours 10/30/16 10/30/16 10/30/16 10/30/16 09:14 11:27 12:00 12:00 Temp 97.9 97.9 Pulse 115 Resp 20 B/P (MAP) 128/83 (98) Pulse Ox 100 94 O2 Delivery Room Air Room Air Room Air Room Air O2 Flow Rate 1.0 6/29/17 6/29/17 6/29/17 6/29/17 14:46 14:52 15:22 15:30 Pulse 115 B/P (MAP) 128/83 Pulse Ox 94 97 94 O2 Delivery Room Air Room Air Room Air O2 Flow Rate 1.0 1.0 10/30/16 10/30/16 10/30/16 10/30/16 16:09 17:39 20:00 20:00 Temp 97.7 98.0 97.7 98.0 Pulse 79 97 Resp 20 20 B/P (MAP) 140/87 (104) 143/89 (107) Pulse Ox 94 92 O2 Delivery Room Air Room Air Room Air Room Air 10/30/16 10/30/16 10/31/16 10/31/16 20:04 23:56 04:20 07:28 Temp 98.1 97.9 97.8 98.1 97.9 97.8 Pulse 75 60 61 Resp 20 20 20 B/P (MAP) 139/73 (95) 131/86 (101) 149/71 (97) Pulse Ox 97 93 92 91 O2 Delivery Room Air Room Air Room Air Room Air 10/31/16 10/31/16 10/31/16 07:49 07:50 07:57 Pulse 61 B/P (MAP) 149/71 Pulse Ox 97 O2 Delivery Room Air Room Air Intake and Output 10/30/16 10/30/16 10/31/16 15:00 23:00 07:00 Intake Total 1000 ml Output Total 350 ml Balance -350 ml 1000 ml DEDE VÁSQUEZ MD Oct 31, 2016 09:12
[2016-10-31 10:56] VITALS: BP 152/83
[2016-10-31 15:11] VITALS: BP 135/86
[2016-10-31 20:00] VITALS: BP 151/86
[2016-10-31] MEDS: diphenhydrAMINE HCL 25 MG CAPSULE PO PRN (21:44)
[2016-11-01] VITALS (7 sets, daily range): BP systolic 137–184; BP diastolic 87–99
[2016-11-01] MEDS: methylPREDNISolone SOD SUCC PF 125 MG/2 ML VIAL. IV SCH ×2 (02:12→09:33)
[2016-11-01] MEDS: MORPHINE SULFATE 2 MG/ML DISP.SYRIN. IV PRN ×6 (02:16→22:09)
[2016-11-01] MEDS: traMADol 50 MG TABLET PO PRN ×2 (02:18→09:34)
[2016-11-01] MEDS: IPRATRPIUM/ALBUTEROL 0.5/2.5MG 3 ML NEBU. NEB SCH ×4 (07:53→18:25)
[2016-11-01] MEDS: FAMOTIDINE 20 MG TABLET. PO SCH ×2 (09:33→20:53)
[2016-11-01] MEDS: LISINOPRIL 40 MG TABLET. PO SCH (09:33)
[2016-11-01] MEDS: DOCUSATE SODIUM 100 MG CAPSULE. PO PRN (09:33)
[2016-11-01] MEDS: ENOXAPARIN 40 MG/0.4 ML SYRINGE. SQ SCH ×2 (09:43→20:53)
--- NOTE | 2016-11-01 12:38 | PDOC ---
PROGRESS NOTES Chief Complaint Chief Complaint Acute hypoxic respir failure HTN urgency ASSESSMENT AND PLAN: 1. Asthma exacerbation: intubated until 10/29 2. HTN urgency: hx noncompliance, restarted lisinopri 3. DM2: prediabetic 4. Hypokalemia: resolved 5. Prophylaxis: lovenox, H2B 6. Morbid obesity BMI 41 plan: cont duoneb, albuterol prn add pulmicort decrease steroid to 60mg iv bid cough meds cont HTN meds dvt, gi ppx increase tramadol for pleuritic chest pain, low dose lortab prn History of Present Illness History of Present Illness peak flow 180 still tachypneic, even with just talking in bed very dyspneic with walking she is unable to be discharged, still needs aggressive nebs and treatment Vitals Vitals Vital Signs Date Time Temp Pulse Resp B/P (MAP) Pulse Ox O2 Delivery O2 Flow Rate FiO2 11/01/16 11:48 95 Room Air 11/01/16 11:00 97.3 84 22 137/93 (108) 97.3 Physical Exam General: Alert, Oriented X3, Cooperative, mild distress Heart: Regular rate, Other (tachycardic) Lungs: Other (bl moderate decreased bs, ) Abdomen: Normal bowel sounds, Soft, No tenderness Extremities: No clubbing, No cyanosis Skin: No rashes Review of Systems Review of Systems no fever, chills, chest pain Assessment and Plan Assessmemt and Plan Problems Medical Problems: (1) Acute respiratory failure Status: Acute (2) Asthma exacerbation attacks Status: Acute Problems: Comment Review of Relevant I have reviewed the following items monserrat (where applicable) has been applied. Labs Laboratory Tests Test 10/31/16 05:32 White Blood Count 18.0 x10^3/uL (4.0-11.0) Red Blood Count 4.36 x10^6/uL (3.50-5.40) Hemoglobin 13.4 g/dL (12.0-15.5) Hematocrit 40.1 % (36.0-47.0) Mean Corpuscular Volume 92 fL (79-100) Mean Corpuscular Hemoglobin 31 pg (25-35) Mean Corpuscular Hemoglobin Concent 33 g/dL (31-37) Red Cell Distribution Width 14.3 % (11.5-14.5) Platelet Count 265 x10^3/uL (140-400) Neutrophils (%) (Auto) 85 % (31-73) Lymphocytes (%) (Auto) 11 % (24-48) Monocytes (%) (Auto) 4 % (0-9) Eosinophils (%) (Auto) 0 % (0-3) Basophils (%) (Auto) 0 % (0-3) Neutrophils # (Auto) 15.2 x10^3uL (1.8-7.7) Lymphocytes # (Auto) 2.1 x10^3/uL (1.0-4.8) Monocytes # (Auto) 0.7 x10^3/uL (0.0-1.1) Eosinophils # (Auto) 0.0 x10^3/uL (0.0-0.7) Basophils # (Auto) 0.0 x10^3/uL (0.0-0.2) Sodium Level 139 mmol/L (136-145) Potassium Level 4.2 mmol/L (3.5-5.1) Chloride Level 104 mmol/L (98-107) Carbon Dioxide Level 28 mmol/L (21-32) Anion Gap 7 (6-14) Blood Urea Nitrogen 22 mg/dL (7-20) Creatinine 0.9 mg/dL (0.6-1.0) Estimated GFR (Cockcroft-Gault) 82.3 Glucose Level 129 mg/dL (70-99) Calcium Level 9.2 mg/dL (8.5-10.1) Microbiology 10/28/16 Blood Culture - Preliminary, Resulted NO GROWTH AFTER 3 DAYS Medications Current Medications Albuterol Sulfate (Ventolin Neb Soln) 10 mg 1X ONCE CONT NEB Last administered on 10/28/16 12:52; Start 10/28/16 at 13:00; Stop 10/28/16 at 13:01 ; Status DC Ipratropium [place] (Atrovent) 0.5 mg 1X ONCE NEB Last administered on 13:02; Start 10/28/16 at 13:00; Stop 10/28/16 at 13:01; Status DC Methylprednisolone Sodium Succinate (SOLU-Medrol 125MG VIAL) 125 mg 1X ONCE IV Last administered on 10/28/16 13:26; Start 10/28/16 at 13:00; Stop 10/28/16 at 13:01; Status DC Lorazepam (Ativan) 1 mg 1X ONCE IV Last administered on 10/28/16 13:20; Start 10/28/16 at 13:00; Stop 10/28/16 at 13:01; Status DC Magnesium Sulfate/ Dextrose 100 ml @ 100 mls/hr 1X ONCE IV Last administered on 10/28/16 15:00; Start 10/28/16 at 14:30; Stop 10/28/16 at 15:29; Status DC Epinephrine HCl (Adrenalin) 0.5 mg 1X ONCE SQ Last administered on 10/28/16 14:58; Start 10/28/16 at 14:30; Stop 10/28/16 at 14:31; Status DC Ketamine HCl 100 mg 1X ONCE IV Last administered on 10/28/16 14:55; Start at 14:45; Stop 10/28/16 at 14:46; Status DC Albuterol Sulfate (Ventolin Neb Soln) 10 mg 1X ONCE CONT NEB Last administered on 10/28/16 15:47; Start 10/28/16 at 15:45; Stop 10/28/16 at 15:46 ; Status DC Ipratropium [place] (Atrovent) 0.5 mg 1X ONCE NEB Last administered on 15:47; Start 10/28/16 at 15:45; Stop 10/28/16 at 15:46; Status DC Acetaminophen (Tylenol) 650 mg PRN Q6HRS PRN PO FEVER; Start 10/28/16 at 16:45 Ondansetron HCl (Zofran) 4 mg PRN Q6HRS PRN IV NAUSEA/VOMITING; Start 10/28/16 at 16:45 Morphine Sulfate 2 mg PRN Q2HR PRN IV PAIN Last administered on 11/01/16 09:34 ; Start 10/28/16 at 16:45 Tramadol HCl (Ultram) 50 mg PRN Q6HRS PRN PO PAIN Last administered on 09:34; Start 10/28/16 at 16:45; Stop 11/01/16 at 09:50; Status DC Hydralazine HCl (Apresoline) 10 mg PRN Q4HRS PRN IVP ELEVATED BP, SEE COMMENTS Last administered on 10/29/16 08:38; Start 10/28/16 at 16:45; Stop 10/29/16 at 10:31; Status DC Docusate Sodium (Colace) 100 mg PRN DAILY PRN PO CONSTIPATION Last administered on 11/01/16 09:33; Start 10/28/16 at 16:45 Albuterol/ Ipratropium (Duoneb) 3 ml RTQID NEB Last administered on 11/01/16 11 :46; Start 10/28/16 at 20:00 Albuterol Sulfate (Ventolin Neb Soln) 2.5 mg PRN Q2HR PRN NEB SHORTNESS OF BREATH Last administered on 10/29/16 03:11; Start 10/28/16 at 16:45 Guaifenesin (Mucinex) 600 mg BID PO ; Start 10/28/16 at 21:00; Stop 10/28/16 at 21:00; Status DC Propofol 50 ml @ As Directed STK-MED ONCE IV ; Start 10/28/16 at 16:37; Stop at 16:38; Status DC Methylprednisolone Sodium Succinate (SOLU-Medrol 125MG VIAL) 60 mg Q8H IV Last administered on 10/28/16 18:13; Start 10/28/16 at 17:00; Stop 10/28/16 at 18:20 ; Status DC Enoxaparin Sodium (Lovenox 40mg Syringe) 40 mg Q12H SQ Last administered on 11/01 09:43; Start 10/28/16 at 21:00 Potassium Chloride 100 ml @ 100 mls/hr Q1H IV Last administered on 10/28/16 21:14; Start 10/28/16 at 17:00; Stop 10/28/16 at 18:59; Status DC Potassium Chloride/Dextrose/ Sod Cl 1,000 ml @ 75 mls/hr [id number] IV Last administered on 10/29/16 08:15; Start 10/28/16 at 17:00; Stop 10/29/16 at 18:36 ; Status DC Propofol 100 ml @ 0 mls/hr CONT PRN IV PER PROTOCOL Last administered on 06:27; Start 10/28/16 at 17:00; Stop 10/30/16 at 10:57; Status DC Ondansetron HCl (Zofran) 4 mg PRN Q8HRS PRN IV NAUSEA/VOMITING; Start 10/28/16 at 17:15; Stop 10/29/16 at 17:14; Status DC Methylprednisolone Sodium Succinate (SOLU-Medrol 125MG VIAL) 62.5 mg Q6HRS IV ; Start 10/28/16 at 18:00; Stop 10/28/16 at 18:00; Status DC Rocuronium [place] (Zemuron) 50 mg 1X ONCE IV Last administered on 10/28/16 16:40; Start 10/28/16 at 17:45; Stop 10/28/16 at 17:51; Status DC Ketamine HCl 400 mg 1X ONCE IV Last administered on 10/28/16 16:39; Start at 17:45; Stop 10/28/16 at 17:51; Status DC Methylprednisolone Sodium Succinate (SOLU-Medrol 125MG VIAL) 125 mg Q8H IV Last administered on 10/30/16 08:13; Start 10/29/16 at 01:00; Stop 10/30/16 at 10:18; Status DC Famotidine (Pepcid) 20 mg QHS IVP Last administered on 10/28/16 21:14; Start 10/28/16 at 21:00; Stop 10/29/16 at 12:25; Status DC Labetalol HCl (Normodyne) 20 mg PRN Q6HRS PRN IVP HYPERTENSION, SEE COMMENTS Last administered on 10/29/16 11:20; Start 10/29/16 at 10:30 Famotidine (Pepcid) 20 mg BID IVP Last administered on 10/30/16 21:45; Start 10/29/16 at 12:00; Stop 10/31/16 at 06:03; Status DC Methylprednisolone Sodium Succinate (SOLU-Medrol 125MG VIAL) 60 mg Q8H IV Last administered on 11/01/16 09:33; Start 10/30/16 at 17:00; Stop 11/01/16 at 09:50; Status DC Lisinopril (Prinivil) 40 mg DAILY PO Last administered on 11/01/16 09:33; Start 10/30/16 at 13:00 Famotidine (Pepcid) 20 mg BID PO Last administered on 11/01/16 09:33; Start at 09:00 Diphenhydramine HCl (Benadryl) 25 mg PRN QHS PRN PO INSOMNIA Last administered on 10/31/16 21:44; Start 10/31/16 at 19:15 Methylprednisolone Sodium Succinate (SOLU-Medrol 40MG VIAL) 60 mg BID IV ; Start 11/01/16 at 21:00 Tramadol HCl (Ultram) 100 mg PRN Q6HRS PRN PO PAIN MILD TO MOD; Start 11/01/16 at 10:00 Acetaminophen/ Hydrocodone Bitart (Lortab 5/325) 1 tab PRN TID PRN PO PAIN MILD TO MODERATE; Start 11/01/16 at 10:00 Active Scripts Active Reported Ventolin Hfa Inhaler (Albuterol Sulfate) 18 Gm Hfa.aer.ad 2 Puff INH Q4HRS Lisinopril 40 Mg Tablet 1 Tab PO DAILY No Known Medications Prior To Admisstion (Info) Each 1 Each Vitals/I & O Vital Sign - Last 24 Hours 10/31/16 10/31/16 10/31/16 10/31/16 15:11 15:15 15:17 18:07 Temp 97.8 97.8 Pulse 36 Resp 36 B/P (MAP) 135/86 (102) Pulse Ox 93 O2 Delivery Room Air Room Air Room Air Room Air 10/31/16 10/31/16 10/31/16 11/01/16 19:09 20:00 20:00 00:00 Temp 97.7 97.8 97.7 97.8 Pulse 75 61 Resp 22 20 B/P (MAP) 151/86 (107) 159/98 (118) Pulse Ox 90 93 O2 Delivery Room Air Room Air Room Air Room Air 11/01/16 11/01/16 11/01/16 11/01/16 02:16 02:18 02:46 03:18 Resp 20 20 20 20 Pulse Ox 92 92 93 O2 Delivery Room Air Room Air Room Air 11/01/16 11/01/16 11/01/16 11/01/16 03:48 06:07 07:00 07:00 Temp 97.7 97.6 97.7 97.6 Pulse 49 57 Resp 22 20 22 B/P (MAP) 148/92 (110) 155/99 (117) Pulse Ox 93 93 95 95 O2 Delivery Room Air Room Air Room Air Room Air 11/01/16 11/01/16 11/01/16 11/01/16 07:55 09:33 09:34 09:34 Pulse 57 B/P (MAP) 155/99 Pulse Ox 95 95 95 O2 Delivery Room Air Room Air Room Air 11/01/16 11/01/16 11:00 11:48 Temp 97.3 97.3 Pulse 84 Resp 22 B/P (MAP) 137/93 (108) Pulse Ox 92 95 O2 Delivery Room Air Room Air Intake and Output 10/31/16 10/31/16 11/01/16 15:00 23:00 07:00 Intake Total 750 ml 600 ml Balance 750 ml 600 ml GUERLINE MARROQUIN MD Nov 01, 2016 12:38
[2016-11-01] MEDS: HYDROcodone/APAP 5/325MG 1 TAB TABLET PO PRN ×2 (13:21→18:28)
[2016-11-01] MEDS: BUDESONIDE 0.5 MG/2 ML NEBU. NEB SCH (18:34)
[2016-11-01] MEDS: methylPREDNISolone SOD SUCC PF 40 MG/ML VIAL. IV SCH (20:53)
[2016-11-01] MEDS: ALBUTEROL SULFATE 2.5 MG/3 ML NEBU. NEB PRN (22:34)
[2016-11-01] MEDS: LABETALOL 20 MG/4 ML DISP.SYRIN. IVP PRN (23:24)
[2016-11-02] MEDS: MORPHINE SULFATE 2 MG/ML DISP.SYRIN. IV PRN ×2 (02:47→06:35)
[2016-11-02 03:30] VITALS: BP 173/93
[2016-11-02 05:12] LABS: BASO # 0.1 x10^3/uL (0.0-0.2); BASO % 0 % (0-3); EOS % 0 % (0-3); HEMATOCRIT 42.1 % (36.0-47.0); LYMPH % 12 % (24-48); MEAN CORPUSCULAR HEMOGLOBIN 31 pg (25-35); MEAN CORPUSCULAR HGB CONC 33 g/dL (31-37); MEAN CORPUSCULAR VOLUME 92 fL (79-100); MONO % 7 % (0-9); NEUT % 81 % (31-73); PLATELET COUNT 252 x10^3/uL (140-400); RED BLOOD COUNT 4.57 x10^6/uL (3.50-5.40); RED CELL DISTRIBUTION WIDTH 13.8 % (11.5-14.5); WHITE BLOOD COUNT 16.8 x10^3/uL (4.0-11.0)
[2016-11-02 05:44] LABS: CALCIUM 8.4 mg/dL (8.5-10.1); CREATININE 0.9 mg/dL (0.6-1.0); GFR 82.3; POTASSIUM 4.1 mmol/L (3.5-5.1)
[2016-11-02 07:00] VITALS: BP 153/71
[2016-11-02] MEDS: BUDESONIDE 0.5 MG/2 ML NEBU. NEB SCH ×2 (07:04→18:59)
[2016-11-02] MEDS: IPRATRPIUM/ALBUTEROL 0.5/2.5MG 3 ML NEBU. NEB SCH ×4 (07:04→18:59)
[2016-11-02] MEDS: FAMOTIDINE 20 MG TABLET. PO SCH ×2 (08:28→20:10)
[2016-11-02] MEDS: methylPREDNISolone SOD SUCC PF 40 MG/ML VIAL. IV SCH ×2 (08:28→20:11)
[2016-11-02] MEDS: ENOXAPARIN 40 MG/0.4 ML SYRINGE. SQ SCH ×2 (08:28→20:15)
[2016-11-02] MEDS: LISINOPRIL 40 MG TABLET. PO SCH (08:29)
[2016-11-02 11:00] VITALS: BP 162/90
[2016-11-02] MEDS: HYDROcodone/APAP 5/325MG 1 TAB TABLET PO PRN (11:24)
[2016-11-02] MEDS: LABETALOL 20 MG/4 ML DISP.SYRIN. IVP PRN (11:46)
--- NOTE | 2016-11-02 13:00 | PDOC ---
PROGRESS NOTES Chief Complaint Chief Complaint Acute hypoxic respir failure HTN urgency ASSESSMENT AND PLAN: 1. Asthma exacerbation: intubated until 10/29 2. HTN urgency 3. DM2: prediabetic 4. Hypokalemia: resolved 5. Prophylaxis: lovenox, H2B 6. Morbid obesity BMI 41 plan: cont duoneb, albuterol prn add pulmicort decrease steroid to 60mg iv bid cough meds cont HTN meds, add amlodipine 5mg daily dvt, gi ppx increase tramadol for pleuritic chest pain, percocet prn hope dc tmr History of Present Illness History of Present Illness still tachypneic, even with just talking in bed,but better than yesterday very dyspneic with walking Vitals Vitals Vital Signs Date Time Temp Pulse Resp B/P (MAP) Pulse Ox O2 Delivery O2 Flow Rate FiO2 11/02/16 11:46 85 162/85 11/02/16 11:24 Room Air 11/02/16 11:00 98.4 24 91 98.4 11/01/16 18:30 1.0 Physical Exam General: Alert, Oriented X3, Cooperative, mild distress Heart: Regular rate, Other (tachycardic) Lungs: Clear, Other Abdomen: Normal bowel sounds, Soft, No tenderness Extremities: No clubbing, No cyanosis Skin: No rashes Labs LABS Laboratory Tests Test 11/02/16 04:56 White Blood Count 16.8 x10^3/uL (4.0-11.0) Red Blood Count 4.57 x10^6/uL (3.50-5.40) Hemoglobin 14.0 g/dL (12.0-15.5) Hematocrit 42.1 % (36.0-47.0) Mean Corpuscular Volume 92 fL (79-100) Mean Corpuscular Hemoglobin 31 pg (25-35) Mean Corpuscular Hemoglobin Concent 33 g/dL (31-37) Red Cell Distribution Width 13.8 % (11.5-14.5) Platelet Count 252 x10^3/uL (140-400) Neutrophils (%) (Auto) 81 % (31-73) Lymphocytes (%) (Auto) 12 % (24-48) Monocytes (%) (Auto) 7 % (0-9) Eosinophils (%) (Auto) 0 % (0-3) Basophils (%) (Auto) 0 % (0-3) Neutrophils # (Auto) 13.5 x10^3uL (1.8-7.7) Lymphocytes # (Auto) 2.0 x10^3/uL (1.0-4.8) Monocytes # (Auto) 1.1 x10^3/uL (0.0-1.1) Eosinophils # (Auto) 0.0 x10^3/uL (0.0-0.7) Basophils # (Auto) 0.1 x10^3/uL (0.0-0.2) Sodium Level 140 mmol/L (136-145) Potassium Level 4.1 mmol/L (3.5-5.1) Chloride Level 103 mmol/L (98-107) Carbon Dioxide Level 32 mmol/L (21-32) Anion Gap 5 (6-14) Blood Urea Nitrogen 16 mg/dL (7-20) Creatinine 0.9 mg/dL (0.6-1.0) Estimated GFR (Cockcroft-Gault) 82.3 Glucose Level 185 mg/dL (70-99) Calcium Level 8.4 mg/dL (8.5-10.1) Review of Systems Review of Systems no fever, chills , chest pain Assessment and Plan Assessmemt and Plan Problems Medical Problems: (1) Acute respiratory failure Status: Acute (2) Asthma exacerbation attacks Status: Acute Problems: Comment Review of Relevant I have reviewed the following items monserrat (where applicable) has been applied. Labs Laboratory Tests Test 11/02/16 04:56 White Blood Count 16.8 x10^3/uL (4.0-11.0) Red Blood Count 4.57 x10^6/uL (3.50-5.40) Hemoglobin 14.0 g/dL (12.0-15.5) Hematocrit 42.1 % (36.0-47.0) Mean Corpuscular Volume 92 fL (79-100) Mean Corpuscular Hemoglobin 31 pg (25-35) Mean Corpuscular Hemoglobin Concent 33 g/dL (31-37) Red Cell Distribution Width 13.8 % (11.5-14.5) Platelet Count 252 x10^3/uL (140-400) Neutrophils (%) (Auto) 81 % (31-73) Lymphocytes (%) (Auto) 12 % (24-48) Monocytes (%) (Auto) 7 % (0-9) Eosinophils (%) (Auto) 0 % (0-3) Basophils (%) (Auto) 0 % (0-3) Neutrophils # (Auto) 13.5 x10^3uL (1.8-7.7) Lymphocytes # (Auto) 2.0 x10^3/uL (1.0-4.8) Monocytes # (Auto) 1.1 x10^3/uL (0.0-1.1) Eosinophils # (Auto) 0.0 x10^3/uL (0.0-0.7) Basophils # (Auto) 0.1 x10^3/uL (0.0-0.2) Sodium Level 140 mmol/L (136-145) Potassium Level 4.1 mmol/L (3.5-5.1) Chloride Level 103 mmol/L (98-107) Carbon Dioxide Level 32 mmol/L (21-32) Anion Gap 5 (6-14) Blood Urea Nitrogen 16 mg/dL (7-20) Creatinine 0.9 mg/dL (0.6-1.0) Estimated GFR (Cockcroft-Gault) 82.3 Glucose Level 185 mg/dL (70-99) Calcium Level 8.4 mg/dL (8.5-10.1) Laboratory Tests Test 11/02/16 04:56 White Blood Count 16.8 x10^3/uL (4.0-11.0) Red Blood Count 4.57 x10^6/uL (3.50-5.40) Hemoglobin 14.0 g/dL (12.0-15.5) Hematocrit 42.1 % (36.0-47.0) Mean Corpuscular Volume 92 fL (79-100) Mean Corpuscular Hemoglobin 31 pg (25-35) Mean Corpuscular Hemoglobin Concent 33 g/dL (31-37) Red Cell Distribution Width 13.8 % (11.5-14.5) Platelet Count 252 x10^3/uL (140-400) Neutrophils (%) (Auto) 81 % (31-73) Lymphocytes (%) (Auto) 12 % (24-48) Monocytes (%) (Auto) 7 % (0-9) Eosinophils (%) (Auto) 0 % (0-3) Basophils (%) (Auto) 0 % (0-3) Neutrophils # (Auto) 13.5 x10^3uL (1.8-7.7) Lymphocytes # (Auto) 2.0 x10^3/uL (1.0-4.8) Monocytes # (Auto) 1.1 x10^3/uL (0.0-1.1) Eosinophils # (Auto) 0.0 x10^3/uL (0.0-0.7) Basophils # (Auto) 0.1 x10^3/uL (0.0-0.2) Sodium Level 140 mmol/L (136-145) Potassium Level 4.1 mmol/L (3.5-5.1) Chloride Level 103 mmol/L (98-107) Carbon Dioxide Level 32 mmol/L (21-32) Anion Gap 5 (6-14) Blood Urea Nitrogen 16 mg/dL (7-20) Creatinine 0.9 mg/dL (0.6-1.0) Estimated GFR (Cockcroft-Gault) 82.3 Glucose Level 185 mg/dL (70-99) Calcium Level 8.4 mg/dL (8.5-10.1) Microbiology 10/28/16 Blood Culture - Preliminary, Resulted NO GROWTH AFTER 4 DAYS Medications Current Medications Albuterol Sulfate (Ventolin Neb Soln) 10 mg 1X ONCE CONT NEB Last administered on 10/28/16 12:52; Start 10/28/16 at 13:00; Stop 10/28/16 at 13:01 ; Status DC Ipratropium [place] (Atrovent) 0.5 mg 1X ONCE NEB Last administered on 13:02; Start 10/28/16 at 13:00; Stop 10/28/16 at 13:01; Status DC Methylprednisolone Sodium Succinate (SOLU-Medrol 125MG VIAL) 125 mg 1X ONCE IV Last administered on 10/28/16 13:26; Start 10/28/16 at 13:00; Stop 10/28/16 at 13:01; Status DC Lorazepam (Ativan) 1 mg 1X ONCE IV Last administered on 10/28/16 13:20; Start 10/28/16 at 13:00; Stop 10/28/16 at 13:01; Status DC Magnesium Sulfate/ Dextrose 100 ml @ 100 mls/hr 1X ONCE IV Last administered on 10/28/16 15:00; Start 10/28/16 at 14:30; Stop 10/28/16 at 15:29; Status DC Epinephrine HCl (Adrenalin) 0.5 mg 1X ONCE SQ Last administered on 10/28/16 14:58; Start 10/28/16 at 14:30; Stop 10/28/16 at 14:31; Status DC Ketamine HCl 100 mg 1X ONCE IV Last administered on 10/28/16 14:55; Start at 14:45; Stop 10/28/16 at 14:46; Status DC Albuterol Sulfate (Ventolin Neb Soln) 10 mg 1X ONCE CONT NEB Last administered on 10/28/16 15:47; Start 10/28/16 at 15:45; Stop 10/28/16 at 15:46 ; Status DC Ipratropium [place] (Atrovent) 0.5 mg 1X ONCE NEB Last administered on 15:47; Start 10/28/16 at 15:45; Stop 10/28/16 at 15:46; Status DC Acetaminophen (Tylenol) 650 mg PRN Q6HRS PRN PO FEVER; Start 10/28/16 at 16:45 Ondansetron HCl (Zofran) 4 mg PRN Q6HRS PRN IV NAUSEA/VOMITING; Start 10/28/16 at 16:45 Morphine Sulfate 2 mg PRN Q2HR PRN IV PAIN Last administered on 11/02/16 06:35 ; Start 10/28/16 at 16:45 Tramadol HCl (Ultram) 50 mg PRN Q6HRS PRN PO PAIN Last administered on 09:34; Start 10/28/16 at 16:45; Stop 11/01/16 at 09:50; Status DC Hydralazine HCl (Apresoline) 10 mg PRN Q4HRS PRN IVP ELEVATED BP, SEE COMMENTS Last administered on 10/29/16 08:38; Start 10/28/16 at 16:45; Stop 10/29/16 at 10:31; Status DC Docusate Sodium (Colace) 100 mg PRN DAILY PRN PO CONSTIPATION Last administered on 11/01/16 09:33; Start 10/28/16 at 16:45 Albuterol/ Ipratropium (Duoneb) 3 ml RTQID NEB Last administered on 11/02/16 11 :00; Start 10/28/16 at 20:00 Albuterol Sulfate (Ventolin Neb Soln) 2.5 mg PRN Q2HR PRN NEB SHORTNESS OF BREATH Last administered on 11/01/16 22:34; Start 10/28/16 at 16:45 Guaifenesin (Mucinex) 600 mg BID PO ; Start 10/28/16 at 21:00; Stop 10/28/16 at 21:00; Status DC Propofol 50 ml @ As Directed STK-MED ONCE IV ; Start 10/28/16 at 16:37; Stop at 16:38; Status DC Methylprednisolone Sodium Succinate (SOLU-Medrol 125MG VIAL) 60 mg Q8H IV Last administered on 10/28/16 18:13; Start 10/28/16 at 17:00; Stop 10/28/16 at 18:20 ; Status DC Enoxaparin Sodium (Lovenox 40mg Syringe) 40 mg Q12H SQ Last administered on 11/02 08:28; Start 10/28/16 at 21:00 Potassium Chloride 100 ml @ 100 mls/hr Q1H IV Last administered on 10/28/16 21:14; Start 10/28/16 at 17:00; Stop 10/28/16 at 18:59; Status DC Potassium Chloride/Dextrose/ Sod Cl 1,000 ml @ 75 mls/hr [id number] IV Last administered on 10/29/16 08:15; Start 10/28/16 at 17:00; Stop 10/29/16 at 18:36 ; Status DC Propofol 100 ml @ 0 mls/hr CONT PRN IV PER PROTOCOL Last administered on 06:27; Start 10/28/16 at 17:00; Stop 10/30/16 at 10:57; Status DC Ondansetron HCl (Zofran) 4 mg PRN Q8HRS PRN IV NAUSEA/VOMITING; Start 10/28/16 at 17:15; Stop 10/29/16 at 17:14; Status DC Methylprednisolone Sodium Succinate (SOLU-Medrol 125MG VIAL) 62.5 mg Q6HRS IV ; Start 10/28/16 at 18:00; Stop 10/28/16 at 18:00; Status DC Rocuronium [place] (Zemuron) 50 mg 1X ONCE IV Last administered on 10/28/16 16:40; Start 10/28/16 at 17:45; Stop 10/28/16 at 17:51; Status DC Ketamine HCl 400 mg 1X ONCE IV Last administered on 10/28/16 16:39; Start at 17:45; Stop 10/28/16 at 17:51; Status DC Methylprednisolone Sodium Succinate (SOLU-Medrol 125MG VIAL) 125 mg Q8H IV Last administered on 10/30/16 08:13; Start 10/29/16 at 01:00; Stop 10/30/16 at 10:18; Status DC Famotidine (Pepcid) 20 mg QHS IVP Last administered on 10/28/16 21:14; Start 10/28/16 at 21:00; Stop 10/29/16 at 12:25; Status DC Labetalol HCl (Normodyne) 20 mg PRN Q6HRS PRN IVP HYPERTENSION, SEE COMMENTS Last administered on 11/02/16 11:46; Start 10/29/16 at 10:30 Famotidine (Pepcid) 20 mg BID IVP Last administered on 10/30/16 21:45; Start 10/29/16 at 12:00; Stop 10/31/16 at 06:03; Status DC Methylprednisolone Sodium Succinate (SOLU-Medrol 125MG VIAL) 60 mg Q8H IV Last administered on 11/01/16 09:33; Start 10/30/16 at 17:00; Stop 11/01/16 at 09:50; Status DC Lisinopril (Prinivil) 40 mg DAILY PO Last administered on 11/02/16 08:29; Start 10/30/16 at 13:00 Famotidine (Pepcid) 20 mg BID PO Last administered on 11/02/16 08:28; Start at 09:00 Diphenhydramine HCl (Benadryl) 25 mg PRN QHS PRN PO INSOMNIA Last administered on 10/31/16 21:44; Start 10/31/16 at 19:15 Methylprednisolone Sodium Succinate (SOLU-Medrol 40MG VIAL) 60 mg BID IV Last administered on 11/02/16 08:28; Start 11/01/16 at 21:00 Tramadol HCl (Ultram) 100 mg PRN Q6HRS PRN PO PAIN MILD TO MOD; Start 11/01/16 at 10:00 Acetaminophen/ Hydrocodone Bitart (Lortab 5/325) 1 tab PRN TID PRN PO PAIN MILD TO MODERATE Last administered on 11/02/16 11:24; Start 11/01/16 at 10:00; Stop 11/02/16 at 11:44; Status DC Budesonide (Pulmicort) 0.5 mg RTBID NEB Last administered on 11/02/16 07:04; Start 11/01/16 at 20:00 Oxycodone/ Acetaminophen (Percocet 5/325) 1 tab PRN Q4HRS PRN PO PAIN MOD TO SEVERE; Start 11/02/16 at 11:45 Active Scripts Active Reported Ventolin Hfa Inhaler (Albuterol Sulfate) 18 Gm Hfa.aer.ad 2 Puff INH Q4HRS Lisinopril 40 Mg Tablet 1 Tab PO DAILY No Known Medications Prior To Admisstion (Info) Each 1 Each Vitals/I & O Vital Sign - Last 24 Hours 11/01/16 11/01/16 11/01/16 11/01/16 13:21 13:21 14:30 15:04 Temp 97.8 97.8 Pulse 66 Resp 22 B/P (MAP) 147/87 (107) Pulse Ox 95 95 92 O2 Delivery Room Air Room Air Room Air O2 Flow Rate 1.0 11/01/16 11/01/16 11/01/16 11/01/16 16:07 18:28 18:30 18:34 Pulse Ox 94 94 94 97 O2 Delivery Room Air Room Air Room Air Room Air O2 Flow Rate 1.0 11/01/16 11/01/16 11/01/16 11/01/16 19:35 20:05 20:09 22:09 Temp 97.7 97.7 Pulse 68 Resp 24 24 24 B/P (MAP) 156/95 (115) Pulse Ox 97 97 97 O2 Delivery Room Air Room Air Room Air Room Air 11/01/16 11/01/16 11/01/16 11/02/16 22:35 23:00 23:24 02:47 Temp 97.7 97.7 Pulse 65 65 Resp 22 B/P (MAP) 184/91 (122) 184/91 Pulse Ox 94 94 O2 Delivery Room Air Room Air Room Air 11/02/16 11/02/16 11/02/16 11/02/16 03:20 03:30 06:35 07:00 Temp 97.7 97.4 97.7 97.4 Pulse 55 65 Resp 18 20 24 24 B/P (MAP) 173/93 (119) 153/71 (98) Pulse Ox 95 95 95 91 O2 Delivery Room Air Room Air Room Air 11/02/16 11/02/16 11/02/16 11/02/16 07:07 07:10 08:10 08:26 Pulse Ox 97 97 O2 Delivery Room Air Room Air Room Air Room Air 11/02/16 11/02/16 11/02/16 11/02/16 08:29 11:00 11:01 11:24 Temp 98.4 98.4 Pulse 55 71 Resp 24 B/P (MAP) 153/71 162/90 (114) Pulse Ox 91 O2 Delivery Room Air Room Air Room Air 11/02/16 11:46 Pulse 85 B/P (MAP) 162/85 Intake and Output 11/01/16 11/01/16 11/02/16 15:00 23:00 07:00 Intake Total 1400 ml 120 ml Output Total 2 ml Balance 1400 ml 118 ml GUERLINE MARROQUIN MD Nov 02, 2016 13:00
[2016-11-02 15:00] VITALS: BP 149/82
[2016-11-02] MEDS: amLODIPine BESYLATE 5 MG TABLET PO SCH (15:00)
[2016-11-02] MEDS: traMADol 50 MG TABLET PO PRN (15:01)
[2016-11-02] MEDS: oxyCODONE/APAP 5/325 1 TAB TABLET PO PRN ×2 (16:02→20:11)
[2016-11-02 19:00] VITALS: BP 166/94
[2016-11-02] MEDS: DOCUSATE SODIUM 100 MG CAPSULE. PO PRN (20:10)
[2016-11-02] MEDS: diphenhydrAMINE HCL 25 MG CAPSULE PO PRN (20:10)
[2016-11-02] MEDS: MAGNESIUM HYDROXIDE 2,400 MG/30 ML ORAL.SUSP. PO PRN (21:52)
[2016-11-02 23:00] VITALS: BP 161/94
[2016-11-02] MEDS: SENNOSIDES/DOCUSATE 8.6/50MG TABLET. PO SCH (23:01)
[2016-11-03 03:00] VITALS: BP 137/84
[2016-11-03] MEDS: oxyCODONE/APAP 5/325 1 TAB TABLET PO PRN ×4 (06:19→22:20)
[2016-11-03] MEDS: BUDESONIDE 0.5 MG/2 ML NEBU. NEB SCH ×2 (07:40→19:13)
[2016-11-03] MEDS: IPRATRPIUM/ALBUTEROL 0.5/2.5MG 3 ML NEBU. NEB SCH ×4 (07:40→19:13)
[2016-11-03 07:51] VITALS: BP 149/94
[2016-11-03] MEDS ORDERED: SENNOSIDES/DOCUSATE 8.6/50MG TABLET. PO SCH (09:00)
[2016-11-03 09:07] LABS: BASO % 0 % (0-3); EOS % 0 % (0-3); HEMATOCRIT 43.4 % (36.0-47.0); HEMOGLOBIN 14.6 g/dL (12.0-15.5); LYMPH # 3.7 x10^3/uL (1.0-4.8); LYMPH % 20 % (24-48); MEAN CORPUSCULAR HEMOGLOBIN 31 pg (25-35); MEAN CORPUSCULAR HGB CONC 34 g/dL (31-37); MEAN CORPUSCULAR VOLUME 91 fL (79-100); MONO % 7 % (0-9); NEUT % 73 % (31-73); PLATELET COUNT 280 x10^3/uL (140-400); RED BLOOD COUNT 4.78 x10^6/uL (3.50-5.40); RED CELL DISTRIBUTION WIDTH 13.9 % (11.5-14.5)
[2016-11-03 09:25] LABS: CALCIUM 8.5 mg/dL (8.5-10.1); CREATININE 0.9 mg/dL (0.6-1.0); GFR 82.3; POTASSIUM 4.1 mmol/L (3.5-5.1)
[2016-11-03] MEDS: ENOXAPARIN 40 MG/0.4 ML SYRINGE. SQ SCH ×2 (09:40→20:38)
[2016-11-03] MEDS: methylPREDNISolone SOD SUCC PF 40 MG/ML VIAL. IV SCH ×2 (09:48→20:42)
[2016-11-03] MEDS: DOCUSATE SODIUM 100 MG CAPSULE. PO SCH ×2 (09:48→20:38)
[2016-11-03] MEDS: amLODIPine BESYLATE 5 MG TABLET PO SCH (09:49)
[2016-11-03] MEDS: SENNOSIDES/DOCUSATE 8.6/50MG TABLET. PO SCH ×2 (09:49→20:38)
[2016-11-03] MEDS: FAMOTIDINE 20 MG TABLET. PO SCH ×2 (09:49→20:38)
[2016-11-03] MEDS: LISINOPRIL 40 MG TABLET. PO SCH (09:49)
[2016-11-03 11:16] VITALS: BP 155/89
[2016-11-03] MEDS ORDERED: AMLO5TAB4 PO (12:41)
[2016-11-03] MEDS ORDERED: BUDE0.5A3 NEB (12:41)
--- NOTE | 2016-11-03 12:47 | PDOC3 ---
Discharge Summary Visit Information Date of Admission: Oct 28, 2016 Date of Discharge: Nov 03, 2016 Admitting Diagnosis Comment: 1. Asthma exacerbation: intubated until 10/29 2. HTN urgency 3. DM2: prediabetic 4. Hypokalemia: resolved 5. Prophylaxis: lovenox, H2B 6. Morbid obesity BMI 41 Final Diagnosis Problems Medical Problems: (1) Acute respiratory failure Status: Acute (2) Asthma exacerbation attacks Status: Acute Brief Hospital Course Allergies Allergies Coded Allergies Type Severity Reaction Last Updated Verified amoxicillin Allergy Intermediate 01/26/15 Yes Vital Signs Vital Signs Date Time Temp Pulse Resp B/P (MAP) Pulse Ox O2 Delivery O2 Flow Rate FiO2 11/03/16 11:27 98 Room Air 11/03/16 11:16 96.8 75 18 155/89 (111) 96.8 Lab Results Laboratory Tests Test 11/02/16 04:56 11/03/16 08:15 White Blood Count 16.8 x10^3/uL (4.0-11.0) 19.0 x10^3/uL (4.0-11.0) Red Blood Count 4.57 x10^6/uL (3.50-5.40) 4.78 x10^6/uL (3.50-5.40) Hemoglobin 14.0 g/dL (12.0-15.5) 14.6 g/dL (12.0-15.5) Hematocrit 42.1 % (36.0-47.0) 43.4 % (36.0-47.0) Mean Corpuscular Volume 92 fL (79-100) 91 fL (79-100) Mean Corpuscular Hemoglobin 31 pg (25-35) 31 pg (25-35) Mean Corpuscular Hemoglobin Concent 33 g/dL (31-37) 34 g/dL (31-37) Red Cell Distribution Width 13.8 % (11.5-14.5) 13.9 % (11.5-14.5) Platelet Count 252 x10^3/uL (140-400) 280 x10^3/uL (140-400) Neutrophils (%) (Auto) 81 % (31-73) 73 % (31-73) Lymphocytes (%) (Auto) 12 % (24-48) 20 % (24-48) Monocytes (%) (Auto) 7 % (0-9) 7 % (0-9) Eosinophils (%) (Auto) 0 % (0-3) 0 % (0-3) Basophils (%) (Auto) 0 % (0-3) 0 % (0-3) Neutrophils # (Auto) 13.5 x10^3uL (1.8-7.7) 13.9 x10^3uL (1.8-7.7) Lymphocytes # (Auto) 2.0 x10^3/uL (1.0-4.8) 3.7 x10^3/uL (1.0-4.8) Monocytes # (Auto) 1.1 x10^3/uL (0.0-1.1) 1.3 x10^3/uL (0.0-1.1) Eosinophils # (Auto) 0.0 x10^3/uL (0.0-0.7) 0.0 x10^3/uL (0.0-0.7) Basophils # (Auto) 0.1 x10^3/uL (0.0-0.2) 0.0 x10^3/uL (0.0-0.2) Sodium Level 140 mmol/L (136-145) 141 mmol/L (136-145) Potassium Level 4.1 mmol/L (3.5-5.1) 4.1 mmol/L (3.5-5.1) Chloride Level 103 mmol/L (98-107) 103 mmol/L (98-107) Carbon Dioxide Level 32 mmol/L (21-32) 34 mmol/L (21-32) Anion Gap 5 (6-14) 4 (6-14) Blood Urea Nitrogen 16 mg/dL (7-20) 15 mg/dL (7-20) Creatinine 0.9 mg/dL (0.6-1.0) 0.9 mg/dL (0.6-1.0) Estimated GFR (Cockcroft-Gault) 82.3 82.3 Glucose Level 185 mg/dL (70-99) 121 mg/dL (70-99) Calcium Level 8.4 mg/dL (8.5-10.1) 8.5 mg/dL (8.5-10.1) Laboratory Tests Test 11/03/16 08:15 White Blood Count 19.0 x10^3/uL (4.0-11.0) Red Blood Count 4.78 x10^6/uL (3.50-5.40) Hemoglobin 14.6 g/dL (12.0-15.5) Hematocrit 43.4 % (36.0-47.0) Mean Corpuscular Volume 91 fL (79-100) Mean Corpuscular Hemoglobin 31 pg (25-35) Mean Corpuscular Hemoglobin Concent 34 g/dL (31-37) Red Cell Distribution Width 13.9 % (11.5-14.5) Platelet Count 280 x10^3/uL (140-400) Neutrophils (%) (Auto) 73 % (31-73) Lymphocytes (%) (Auto) 20 % (24-48) Monocytes (%) (Auto) 7 % (0-9) Eosinophils (%) (Auto) 0 % (0-3) Basophils (%) (Auto) 0 % (0-3) Neutrophils # (Auto) 13.9 x10^3uL (1.8-7.7) Lymphocytes # (Auto) 3.7 x10^3/uL (1.0-4.8) Monocytes # (Auto) 1.3 x10^3/uL (0.0-1.1) Eosinophils # (Auto) 0.0 x10^3/uL (0.0-0.7) Basophils # (Auto) 0.0 x10^3/uL (0.0-0.2) Sodium Level 141 mmol/L (136-145) Potassium Level 4.1 mmol/L (3.5-5.1) Chloride Level 103 mmol/L (98-107) Carbon Dioxide Level 34 mmol/L (21-32) Anion Gap 4 (6-14) Blood Urea Nitrogen 15 mg/dL (7-20) Creatinine 0.9 mg/dL (0.6-1.0) Estimated GFR (Cockcroft-Gault) 82.3 Glucose Level 121 mg/dL (70-99) Calcium Level 8.5 mg/dL (8.5-10.1) Brief Hospital Course Ms. De Leon is a 46 old obese AA female, known asthmatic, non smoker admitted for asthma exacerbation, intubated from day of admit thru 10/29 ([facility] only)? Stayed about a week in house, on solu 60 IV BID, SP. BP high on lisinopril 40 at home, needed to start norvasc 5 qD. All scripts written, HEavy education and counselling done still SOA long distances. Needs to stick to inhalers, will get samples from pulmo. COst is an issue for her Dw pt and RN. Pt seen and examined Time 35 mins > 50% cousnelling Discharge Information Condition at Discharge: Improved, Stable Disposition/Orders: D/C to Home Scheduled Albuterol Sulfate (Ventolin Hfa Inhaler), 2 PUFF INH Q4HRS, (Reported) Lisinopril (Lisinopril), 1 TAB PO DAILY, (Reported) Miscellaneous Medications Info (No Known Medications Prior To Admisstion), 1 EACH , (Reported) OLGA SALAZAR MD Nov 03, 2016 12:46
--- NOTE | 2016-11-03 13:43 | PDOC ---
Provider Note Provider Note Pt still very soa and is unable to get the free samples from pulmo clinic which is closed today Ok to hold dc till gets free samples inhalers from pulnc Dw OLGA RAMIREZ MD Nov 03, 2016 13:43
[2016-11-03 14:44] VITALS: BP 155/91
[2016-11-03 20:13] VITALS: BP 166/100
[2016-11-03] MEDS: diphenhydrAMINE HCL 25 MG CAPSULE PO PRN (22:19)
[2016-11-03] MEDS: LABETALOL 20 MG/4 ML DISP.SYRIN. IVP PRN (22:20)
[2016-11-03 23:22] VITALS: BP 150/87
[2016-11-04 03:20] VITALS: BP 153/84
[2016-11-04] MEDS: oxyCODONE/APAP 5/325 1 TAB TABLET PO PRN ×6 (04:12→22:25)
[2016-11-04 07:00] VITALS: BP 168/87
[2016-11-04] MEDS: IPRATRPIUM/ALBUTEROL 0.5/2.5MG 3 ML NEBU. NEB SCH ×4 (07:25→18:55)
[2016-11-04] MEDS: BUDESONIDE 0.5 MG/2 ML NEBU. NEB SCH ×2 (07:25→18:55)
[2016-11-04] MEDS: ENOXAPARIN 40 MG/0.4 ML SYRINGE. SQ SCH ×2 (07:58→20:28)
[2016-11-04] MEDS: amLODIPine BESYLATE 5 MG TABLET PO SCH (07:59)
[2016-11-04] MEDS: DOCUSATE SODIUM 100 MG CAPSULE. PO SCH ×2 (07:59→20:29)
[2016-11-04] MEDS: methylPREDNISolone SOD SUCC PF 40 MG/ML VIAL. IV SCH ×2 (08:00→20:30)
[2016-11-04] MEDS: SENNOSIDES/DOCUSATE 8.6/50MG TABLET. PO SCH ×2 (08:00→20:29)
[2016-11-04] MEDS: LISINOPRIL 40 MG TABLET. PO SCH (08:00)
[2016-11-04] MEDS: FAMOTIDINE 20 MG TABLET. PO SCH ×2 (08:00→20:28)
[2016-11-04] MEDS: LABETALOL 20 MG/4 ML DISP.SYRIN. IVP PRN (08:45)
--- NOTE | 2016-11-04 10:32 | PDOC ---
PROGRESS NOTES Chief Complaint Chief Complaint Acute hypoxic respir failure HTN urgency ASSESSMENT AND PLAN: 1. Asthma exacerbation: intubated until 10/29 2. HTN urgency 3. DM2: prediabetic 4. Hypokalemia: resolved 5. Prophylaxis: lovenox, H2B 6. Morbid obesity BMI 41 plan: cont duoneb, albuterol prn add pulmicort decrease steroid to 60mg iv bid cough meds cont HTN meds, add amlodipine 5mg daily dvt, gi ppx increase tramadol for pleuritic chest pain, percocet prn hope dc tmr History of Present Illness History of Present Illness SOA after sentences and long walks Otherwise, ok Less wheezing Awaiting resources (free inhalers) when pulmo clinic opens on Thu PLAN: CPM Dc betsey with free inhalers dw pt Vitals Vitals Vital Signs Date Time Temp Pulse Resp B/P (MAP) Pulse Ox O2 Delivery O2 Flow Rate FiO2 11/04/16 09:59 Room Air 11/04/16 08:45 56 168/87 11/04/16 07:27 95 11/04/16 07:00 97.4 20 97.4 11/04/16 05:12 1.0 Physical Exam General: Alert, Oriented X3, Cooperative, mild distress Heart: Regular rate, Other (tachycardic) Lungs: Clear, Other Abdomen: Normal bowel sounds, Soft, No tenderness Extremities: No clubbing, No cyanosis Skin: No rashes Review of Systems Review of Systems no inc soa, no cp, no abd pain, no emesis Assessment and Plan Assessmemt and Plan Problems Medical Problems: (1) Acute respiratory failure Status: Acute (2) Asthma exacerbation attacks Status: Acute Problems: Comment Review of Relevant I have reviewed the following items monserrat (where applicable) has been applied. Labs Laboratory Tests Test 11/03/16 08:15 White Blood Count 19.0 x10^3/uL (4.0-11.0) Red Blood Count 4.78 x10^6/uL (3.50-5.40) Hemoglobin 14.6 g/dL (12.0-15.5) Hematocrit 43.4 % (36.0-47.0) Mean Corpuscular Volume 91 fL (79-100) Mean Corpuscular Hemoglobin 31 pg (25-35) Mean Corpuscular Hemoglobin Concent 34 g/dL (31-37) Red Cell Distribution Width 13.9 % (11.5-14.5) Platelet Count 280 x10^3/uL (140-400) Neutrophils (%) (Auto) 73 % (31-73) Lymphocytes (%) (Auto) 20 % (24-48) Monocytes (%) (Auto) 7 % (0-9) Eosinophils (%) (Auto) 0 % (0-3) Basophils (%) (Auto) 0 % (0-3) Neutrophils # (Auto) 13.9 x10^3uL (1.8-7.7) Lymphocytes # (Auto) 3.7 x10^3/uL (1.0-4.8) Monocytes # (Auto) 1.3 x10^3/uL (0.0-1.1) Eosinophils # (Auto) 0.0 x10^3/uL (0.0-0.7) Basophils # (Auto) 0.0 x10^3/uL (0.0-0.2) Sodium Level 141 mmol/L (136-145) Potassium Level 4.1 mmol/L (3.5-5.1) Chloride Level 103 mmol/L (98-107) Carbon Dioxide Level 34 mmol/L (21-32) Anion Gap 4 (6-14) Blood Urea Nitrogen 15 mg/dL (7-20) Creatinine 0.9 mg/dL (0.6-1.0) Estimated GFR (Cockcroft-Gault) 82.3 Glucose Level 121 mg/dL (70-99) Calcium Level 8.5 mg/dL (8.5-10.1) Microbiology 10/28/16 Blood Culture - Final, Complete NO GROWTH AFTER 5 DAYS Medications Current Medications Albuterol Sulfate (Ventolin Neb Soln) 10 mg 1X ONCE CONT NEB Last administered on 10/28/16 12:52; Start 10/28/16 at 13:00; Stop 10/28/16 at 13:01 ; Status DC Ipratropium [place] (Atrovent) 0.5 mg 1X ONCE NEB Last administered on 13:02; Start 10/28/16 at 13:00; Stop 10/28/16 at 13:01; Status DC Methylprednisolone Sodium Succinate (SOLU-Medrol 125MG VIAL) 125 mg 1X ONCE IV Last administered on 10/28/16 13:26; Start 10/28/16 at 13:00; Stop 10/28/16 at 13:01; Status DC Lorazepam (Ativan) 1 mg 1X ONCE IV Last administered on 10/28/16 13:20; Start 10/28/16 at 13:00; Stop 10/28/16 at 13:01; Status DC Magnesium Sulfate/ Dextrose 100 ml @ 100 mls/hr 1X ONCE IV Last administered on 10/28/16 15:00; Start 10/28/16 at 14:30; Stop 10/28/16 at 15:29; Status DC Epinephrine HCl (Adrenalin) 0.5 mg 1X ONCE SQ Last administered on 10/28/16 14:58; Start 10/28/16 at 14:30; Stop 10/28/16 at 14:31; Status DC Ketamine HCl 100 mg 1X ONCE IV Last administered on 10/28/16 14:55; Start at 14:45; Stop 10/28/16 at 14:46; Status DC Albuterol Sulfate (Ventolin Neb Soln) 10 mg 1X ONCE CONT NEB Last administered on 10/28/16 15:47; Start 10/28/16 at 15:45; Stop 10/28/16 at 15:46 ; Status DC Ipratropium [place] (Atrovent) 0.5 mg 1X ONCE NEB Last administered on 15:47; Start 10/28/16 at 15:45; Stop 10/28/16 at 15:46; Status DC Acetaminophen (Tylenol) 650 mg PRN Q6HRS PRN PO FEVER; Start 10/28/16 at 16:45 Ondansetron HCl (Zofran) 4 mg PRN Q6HRS PRN IV NAUSEA/VOMITING; Start 10/28/16 at 16:45 Morphine Sulfate 2 mg PRN Q2HR PRN IV PAIN Last administered on 11/02/16 06:35 ; Start 10/28/16 at 16:45 Tramadol HCl (Ultram) 50 mg PRN Q6HRS PRN PO PAIN Last administered on 09:34; Start 10/28/16 at 16:45; Stop 11/01/16 at 09:50; Status DC Hydralazine HCl (Apresoline) 10 mg PRN Q4HRS PRN IVP ELEVATED BP, SEE COMMENTS Last administered on 10/29/16 08:38; Start 10/28/16 at 16:45; Stop 10/29/16 at 10:31; Status DC Docusate Sodium (Colace) 100 mg PRN DAILY PRN PO CONSTIPATION Last administered on 11/02/16 20:10; Start 10/28/16 at 16:45 Albuterol/ Ipratropium (Duoneb) 3 ml RTQID NEB Last administered on 11/04/16 07 :25; Start 10/28/16 at 20:00 Albuterol Sulfate (Ventolin Neb Soln) 2.5 mg PRN Q2HR PRN NEB SHORTNESS OF BREATH Last administered on 11/01/16 22:34; Start 10/28/16 at 16:45 Guaifenesin (Mucinex) 600 mg BID PO ; Start 10/28/16 at 21:00; Stop 10/28/16 at 21:00; Status DC Propofol 50 ml @ As Directed STK-MED ONCE IV ; Start 10/28/16 at 16:37; Stop at 16:38; Status DC Methylprednisolone Sodium Succinate (SOLU-Medrol 125MG VIAL) 60 mg Q8H IV Last administered on 10/28/16 18:13; Start 10/28/16 at 17:00; Stop 10/28/16 at 18:20 ; Status DC Enoxaparin Sodium (Lovenox 40mg Syringe) 40 mg Q12H SQ Last administered on 11/04 07:58; Start 10/28/16 at 21:00 Potassium Chloride 100 ml @ 100 mls/hr Q1H IV Last administered on 10/28/16 21:14; Start 10/28/16 at 17:00; Stop 10/28/16 at 18:59; Status DC Potassium Chloride/Dextrose/ Sod Cl 1,000 ml @ 75 mls/hr [id number] IV Last administered on 10/29/16 08:15; Start 10/28/16 at 17:00; Stop 10/29/16 at 18:36 ; Status DC Propofol 100 ml @ 0 mls/hr CONT PRN IV PER PROTOCOL Last administered on 06:27; Start 10/28/16 at 17:00; Stop 10/30/16 at 10:57; Status DC Ondansetron HCl (Zofran) 4 mg PRN Q8HRS PRN IV NAUSEA/VOMITING; Start 10/28/16 at 17:15; Stop 10/29/16 at 17:14; Status DC Methylprednisolone Sodium Succinate (SOLU-Medrol 125MG VIAL) 62.5 mg Q6HRS IV ; Start 10/28/16 at 18:00; Stop 10/28/16 at 18:00; Status DC Rocuronium [place] (Zemuron) 50 mg 1X ONCE IV Last administered on 10/28/16 16:40; Start 10/28/16 at 17:45; Stop 10/28/16 at 17:51; Status DC Ketamine HCl 400 mg 1X ONCE IV Last administered on 10/28/16 16:39; Start at 17:45; Stop 10/28/16 at 17:51; Status DC Methylprednisolone Sodium Succinate (SOLU-Medrol 125MG VIAL) 125 mg Q8H IV Last administered on 10/30/16 08:13; Start 10/29/16 at 01:00; Stop 10/30/16 at 10:18; Status DC Famotidine (Pepcid) 20 mg QHS IVP Last administered on 10/28/16 21:14; Start 10/28/16 at 21:00; Stop 10/29/16 at 12:25; Status DC Labetalol HCl (Normodyne) 20 mg PRN Q6HRS PRN IVP HYPERTENSION, SEE COMMENTS Last administered on 11/04/16 08:45; Start 10/29/16 at 10:30 Famotidine (Pepcid) 20 mg BID IVP Last administered on 10/30/16 21:45; Start 10/29/16 at 12:00; Stop 10/31/16 at 06:03; Status DC Methylprednisolone Sodium Succinate (SOLU-Medrol 125MG VIAL) 60 mg Q8H IV Last administered on 11/01/16 09:33; Start 10/30/16 at 17:00; Stop 11/01/16 at 09:50; Status DC Lisinopril (Prinivil) 40 mg DAILY PO Last administered on 11/04/16 08:00; Start 10/30/16 at 13:00 Famotidine (Pepcid) 20 mg BID PO Last administered on 11/04/16 08:00; Start at 09:00 Diphenhydramine HCl (Benadryl) 25 mg PRN QHS PRN PO INSOMNIA Last administered on 11/03/16 22:19; Start 10/31/16 at 19:15 Methylprednisolone Sodium Succinate (SOLU-Medrol 40MG VIAL) 60 mg BID IV Last administered on 11/04/16 08:00; Start 11/01/16 at 21:00 Tramadol HCl (Ultram) 100 mg PRN Q6HRS PRN PO PAIN MILD TO MOD Last administered on 11/02/16 15:01; Start 11/01/16 at 10:00 Acetaminophen/ Hydrocodone Bitart (Lortab 5/325) 1 tab PRN TID PRN PO PAIN MILD TO MODERATE Last administered on 11/02/16 11:24; Start 11/01/16 at 10:00; Stop 11/02/16 at 11:44; Status DC Budesonide (Pulmicort) 0.5 mg RTBID NEB Last administered on 11/04/16 07:25; Start 11/01/16 at 20:00 Oxycodone/ Acetaminophen (Percocet 5/325) 1 tab PRN Q4HRS PRN PO PAIN MOD TO SEVERE Last administered on 11/04/16 07:57; Start 11/02/16 at 11:45 Amlodipine Besylate (Norvasc) 5 mg DAILY PO Last administered on 11/04/16 07:59 ; Start 11/02/16 at 14:00 Senna/Docusate Sodium (Senna Plus) 1 tab BID PO ; Start 11/03/16 at 09:00; Stop 11/03/16 at 09:00; Status DC Docusate Sodium (Colace) 100 mg BID PO Last administered on 11/04/16 07:59; Start 11/03/16 at 09:00 Magnesium Hydroxide (Milk Of Magnesia) 2,400 mg PRN Q12HR PRN PO CONSTIPATION Last administered on 11/02/16 21:52; Start 11/02/16 at 21:15 Senna/Docusate Sodium (Senna Plus) 1 tab BID PO Last administered on 7/4/17at 08:00; Start 11/02/16 at 22:00 Active Scripts Active Reported Ventolin Hfa Inhaler (Albuterol Sulfate) 18 Gm Hfa.aer.ad 2 Puff INH Q4HRS Lisinopril 40 Mg Tablet 1 Tab PO DAILY No Known Medications Prior To Admisstion (Info) Each 1 Each Vitals/I & O Vital Sign - Last 24 Hours 11/03/16 11/03/16 11/03/16 11/03/16 11:16 11:27 13:51 14:44 Temp 96.8 97.6 96.8 97.6 Pulse 75 73 Resp 18 16 20 B/P (MAP) 155/89 (111) 155/91 (112) Pulse Ox 98 98 96 96 O2 Delivery Room Air Room Air Room Air Room Air 11/03/16 11/03/16 11/03/16 11/03/16 15:39 18:34 19:16 19:17 Resp 16 Pulse Ox 98 94 96 96 O2 Delivery Room Air Room Air Room Air Room Air 11/03/16 11/03/16 11/03/16 11/03/16 20:00 20:13 22:20 22:20 Temp 97.9 97.9 Pulse 87 87 Resp 22 16 B/P (MAP) 166/100 (122) 166/100 Pulse Ox 94 94 O2 Delivery Room Air Room Air Room Air 11/03/16 11/04/16 11/04/16 11/04/16 23:22 03:20 04:12 05:12 Temp 98.1 97.7 98.1 97.7 Pulse 64 65 Resp 20 20 16 16 B/P (MAP) 150/87 (108) 153/84 (107) Pulse Ox 96 92 92 92 O2 Delivery Room Air Room Air Room Air O2 Flow Rate 1.0 11/04/16 11/04/16 11/04/16 11/04/16 07:00 07:27 07:57 07:59 Temp 97.4 97.4 Pulse 56 56 Resp 20 B/P (MAP) 168/87 (114) 168/87 Pulse Ox 98 95 O2 Delivery Room Air Room Air Room Air 11/04/16 11/04/16 11/04/16 11/04/16 08:00 08:15 08:45 09:59 Pulse 56 56 B/P (MAP) 168/87 168/87 O2 Delivery Room Air Room Air Intake and Output 11/03/16 11/03/16 11/04/16 15:00 23:00 07:00 Intake Total 120 ml 200 ml Balance 120 ml 200 ml OLGA SALAZAR MD Nov 04, 2016 10:32
[2016-11-04 11:00] VITALS: BP 145/86
[2016-11-04] MEDS: traMADol 50 MG TABLET PO PRN ×2 (11:47→18:16)
[2016-11-04] MEDS: MAGNESIUM HYDROXIDE 2,400 MG/30 ML ORAL.SUSP. PO PRN (12:08)
[2016-11-04 14:00] VITALS: BP 144/82
[2016-11-04] MEDS: DOCUSATE SODIUM 100 MG CAPSULE. PO PRN (14:55)
[2016-11-04 19:50] VITALS: BP 148/99
[2016-11-04] MEDS: diphenhydrAMINE HCL 25 MG CAPSULE PO PRN ×2 (20:29→22:25)
[2016-11-04 23:25] VITALS: BP 158/87
[2016-11-05] MEDS: oxyCODONE/APAP 5/325 1 TAB TABLET PO PRN ×2 (02:50→09:28)
[2016-11-05 03:39] VITALS: BP 148/85
[2016-11-05 07:00] VITALS: BP 143/83
[2016-11-05] MEDS: IPRATRPIUM/ALBUTEROL 0.5/2.5MG 3 ML NEBU. NEB SCH ×2 (07:40→11:04)
[2016-11-05] MEDS: BUDESONIDE 0.5 MG/2 ML NEBU. NEB SCH (07:40)
[2016-11-05] MEDS: DOCUSATE SODIUM 100 MG CAPSULE. PO SCH (09:27)
[2016-11-05] MEDS: methylPREDNISolone SOD SUCC PF 40 MG/ML VIAL. IV SCH (09:27)
[2016-11-05] MEDS: ENOXAPARIN 40 MG/0.4 ML SYRINGE. SQ SCH (09:27)
[2016-11-05] MEDS: LISINOPRIL 40 MG TABLET. PO SCH (09:27)
[2016-11-05] MEDS: amLODIPine BESYLATE 5 MG TABLET PO SCH (09:28)
[2016-11-05] MEDS: SENNOSIDES/DOCUSATE 8.6/50MG TABLET. PO SCH (09:28)
[2016-11-05] MEDS: FAMOTIDINE 20 MG TABLET. PO SCH (09:28)
--- NOTE | 2016-11-05 09:53 | PDOC ---
Provider Note Provider Note DISCHARGE SUMMARY Site Code: PMC Name: RADHIKA DE LEON Acct: [id number] MR: [id number] : 1970 Visit Date: 10/28/16 [facility] [address] [place] [address] DISCHARGE SUMMARY PATIENT: RADHIKA DE LEON ACCOUNT: [id number] : 1970 LOC: [address] [place] [address] AGE: 46 SEX: F STATUS: ADM IN LOCATION: [address] [place] [address] Discharge Summary Visit Information Date of Admission: Oct 28, 2016 Date of Discharge: Nov 05, 2016 Admitting Diagnosis Comment: 1. Asthma exacerbation: intubated until 10/29 2. HTN urgency 3. DM2: prediabetic 4. Hypokalemia: resolved 5. Prophylaxis: lovenox, H2B 6. Morbid obesity BMI 41 Final Diagnosis Problems Medical Problems: (1) Acute respiratory failure Status: Acute (2) Asthma exacerbation attacks Status: Acute Brief Hospital Course Allergies Allergies Coded Allergies Type Severity Reaction Last Updated Verified amoxicillin Allergy Intermediate 01/26/15 Yes Vital Signs Vital Signs Date Time Temp Pulse Resp B/P (MAP) Pulse Ox O2 Delivery O2 Flow Rate FiO2 11/03/16 11:27 98 Room Air 11/03/16 11:16 96.8 75 18 155/89 (111) 96.8 Lab Results Laboratory Tests Test 11/02/16 04:56 11/03/16 08:15 White Blood Count 16.8 x10^3/uL (4.0-11.0) 19.0 x10^3/uL (4.0-11.0) Red Blood Count 4.57 x10^6/uL (3.50-5.40) 4.78 x10^6/uL (3.50-5.40) Hemoglobin 14.0 g/dL (12.0-15.5) 14.6 g/dL (12.0-15.5) Hematocrit 42.1 % (36.0-47.0) 43.4 % (36.0-47.0) Mean Corpuscular Volume 92 fL (79-100) 91 fL (79-100) Mean Corpuscular Hemoglobin 31 pg (25-35) 31 pg (25-35) Mean Corpuscular Hemoglobin Concent 33 g/dL (31-37) 34 g/dL (31-37) Red Cell Distribution Width 13.8 % (11.5-14.5) 13.9 % (11.5-14.5) Platelet Count 252 x10^3/uL (140-400) 280 x10^3/uL (140-400) Neutrophils (%) (Auto) 81 % (31-73) 73 % (31-73) Lymphocytes (%) (Auto) 12 % (24-48) 20 % (24-48) Monocytes (%) (Auto) 7 % (0-9) 7 % (0-9) Eosinophils (%) (Auto) 0 % (0-3) 0 % (0-3) Basophils (%) (Auto) 0 % (0-3) 0 % (0-3) Neutrophils # (Auto) 13.5 x10^3uL (1.8-7.7) 13.9 x10^3uL (1.8-7.7) Lymphocytes # (Auto) 2.0 x10^3/uL (1.0-4.8) 3.7 x10^3/uL (1.0-4.8) Monocytes # (Auto) 1.1 x10^3/uL (0.0-1.1) 1.3 x10^3/uL (0.0-1.1) Eosinophils # (Auto) 0.0 x10^3/uL (0.0-0.7) 0.0 x10^3/uL (0.0-0.7) Basophils # (Auto) 0.1 x10^3/uL (0.0-0.2) 0.0 x10^3/uL (0.0-0.2) Sodium Level 140 mmol/L (136-145) 141 mmol/L (136-145) Potassium Level 4.1 mmol/L (3.5-5.1) 4.1 mmol/L (3.5-5.1) Chloride Level 103 mmol/L (98-107) 103 mmol/L (98-107) Carbon Dioxide Level 32 mmol/L (21-32) 34 mmol/L (21-32) Anion Gap 5 (6-14) 4 (6-14) Blood Urea Nitrogen 16 mg/dL (7-20) 15 mg/dL (7-20) Creatinine 0.9 mg/dL (0.6-1.0) 0.9 mg/dL (0.6-1.0) Estimated GFR (Cockcroft-Gault) 82.3 82.3 Glucose Level 185 mg/dL (70-99) 121 mg/dL (70-99) Calcium Level 8.4 mg/dL (8.5-10.1) 8.5 mg/dL (8.5-10.1) Laboratory Tests Test 11/03/16 08:15 White Blood Count 19.0 x10^3/uL (4.0-11.0) Red Blood Count 4.78 x10^6/uL (3.50-5.40) Hemoglobin 14.6 g/dL (12.0-15.5) Hematocrit 43.4 % (36.0-47.0) Mean Corpuscular Volume 91 fL (79-100) Mean Corpuscular Hemoglobin 31 pg (25-35) Mean Corpuscular Hemoglobin Concent 34 g/dL (31-37) Red Cell Distribution Width 13.9 % (11.5-14.5) Platelet Count 280 x10^3/uL (140-400) Neutrophils (%) (Auto) 73 % (31-73) Lymphocytes (%) (Auto) 20 % (24-48) Monocytes (%) (Auto) 7 % (0-9) Eosinophils (%) (Auto) 0 % (0-3) Basophils (%) (Auto) 0 % (0-3) Neutrophils # (Auto) 13.9 x10^3uL (1.8-7.7) Lymphocytes # (Auto) 3.7 x10^3/uL (1.0-4.8) Monocytes # (Auto) 1.3 x10^3/uL (0.0-1.1) Eosinophils # (Auto) 0.0 x10^3/uL (0.0-0.7) Basophils # (Auto) 0.0 x10^3/uL (0.0-0.2) Sodium Level 141 mmol/L (136-145) Potassium Level 4.1 mmol/L (3.5-5.1) Chloride Level 103 mmol/L (98-107) Carbon Dioxide Level 34 mmol/L (21-32) Anion Gap 4 (6-14) Blood Urea Nitrogen 15 mg/dL (7-20) Creatinine 0.9 mg/dL (0.6-1.0) Estimated GFR (Cockcroft-Gault) 82.3 Glucose Level 121 mg/dL (70-99) Calcium Level 8.5 mg/dL (8.5-10.1) Brief Hospital Course Ms. De Leon is a 46 old obese AA female, known asthmatic, non smoker admitted for asthma exacerbation, intubated from day of admit thru 10/29 ([facility] only)? Stayed about a week in house, on solu 60 IV BID, SP. BP high on lisinopril 40 at home, needed to start norvasc 5 qD. All scripts written, HEavy education and counselling done still SOA long distances. Needs to stick to inhalers, will get samples from pulmo. COst is an issue for her Dw pt and RN. Pt seen and examined Time 35 mins > 50% cousnelling Discharge Information Condition at Discharge: Improved, Stable Disposition/Orders: D/C to Home Scheduled Albuterol Sulfate (Ventolin Hfa Inhaler), 2 PUFF INH Q4HRS, (Reported) Lisinopril (Lisinopril), 1 TAB PO DAILY, (Reported) Miscellaneous Medications Info (No Known Medications Prior To Admisstion), 1 EACH , (Reported) OLGA SALAZAR MD Nov 03, 2016 12:46 DICTATED BY: OLGA SALAZAR MD 11/03/16 1246 SIGNED BY: OLGA SALAZAR MD 11/05/16 1247 cc: OLGA SALAZAR MD; UNKNOWN PCP NAME; GUERLINE MARROQUIN MD ~ addendum: needed tos [place] over the November 04 holiday [facility] pulmo office was closed and could not get free samples of inhalers OLGA SALAZAR MD Nov 05, 2016 09:53
[2016-11-05 11:27] VITALS: BP 150/89
== END 2016-11-05 12:15 | disposition home or self-care (01) | DRG 208 ==
LOC: ER 12:34 → 1 WEST ICU 14:30 → 4 NORTH 10-30 10:54
PROVIDERS: ADMIT Internal Medicine; ATTEND Internal Medicine
PROC: 5A1935Z Respiratory Ventilation, Less than 24 Consecutive Hours (ICD-10-PCS; principal; 2016-10-28)
PROC: 0BH17EZ Insertion of Endotracheal Airway into Trachea, Via Natural or Artificial Opening (ICD-10-PCS; 2016-10-28)
PROC: 5A09357 Assistance with Respiratory Ventilation, Less than 24 Consecutive Hours, Continuous Positive Airway Pressure (ICD-10-PCS; 2016-10-28)
DX: J96.01 Acute respiratory failure with hypoxia (principal); Z68.43 Body mass index [BMI] 50.0-59.9, adult; J45.902 Unspecified asthma with status asthmaticus; E66.01 Morbid (severe) obesity due to excess calories; E87.6 Hypokalemia; E11.9 Type 2 diabetes mellitus without complications; I16.0 Hypertensive urgency; T38.0X5A Adverse effect of glucocorticoids and synthetic analogues, initial encounter; T59.891A Toxic effect of other specified gases, fumes and vapors, accidental (unintentional), initial encounter; K59.00 Constipation, unspecified; F41.9 Anxiety disorder, unspecified; D72.829 Elevated white blood cell count, unspecified; I10 Essential (primary) hypertension; Z82.49 Family history of ischemic heart disease and other diseases of the circulatory system; Z90.710 Acquired absence of both cervix and uterus; Z90.89 Acquired absence of other organs; Z91.19 Patient's noncompliance with other medical treatment and regimen; Z79.899 Other long term (current) drug therapy; Z79.1 Long term (current) use of non-steroidal anti-inflammatories (NSAID); Z79.2 Long term (current) use of antibiotics; Z88.1 Allergy status to other antibiotic agents; Z98.49 Cataract extraction status, unspecified eye; Y92.89 Other specified places as the place of occurrence of the external cause
CPT/HCPCS: 31500; 36415; 36600; 71010; 80048; 80053; 82805; 83036; 83735; 84484; 85007; 85027; 87040; 87641; 93005; 94003; 94250; 94640; 94660; 94760; 96365; 96375; 96376; J0171; J0360; J1650; J2060; J2270; J2704; J2920; J2930; J3475; J3480; J3490; J7620; J7644; Q0163; S0028; 99285-25

== ENCOUNTER 2017-01-22 13:31 | Emergency (ER) | payer SELFPAY ==
[~2017-01-22] VITALS: Ht 154.9 cm; Wt 121.1 kg
[~2017-01-22 13:31] MED LIST changes: +AMLO5TAB4 PO; +BUDE0.5A3 NEB
--- NOTE | 2017-01-22 14:20 | PHYS DOC ---
Past Medical History Past Medical History: Anxiety, Asthma, Hypertension Past Surgical History: Hysterectomy, Tonsillectomy Additional Past Surgical Histo: bladder sling, cataract Alcohol Use: Occasionally Drug Use: None Adult General Chief Complaint Chief Complaint: LOWER EXT PAIN [facility] HPI Patient is a 46 year old female presents to the emergency department stating that she was seen by her primary care physician yesterday and had blood work done she states that they called her today and told her that she needed to come to the emergency department as one of her blood work was elevated. Patient states that she believes its to tell that she has a blood clot in her leg. Patient has are related over to ultrasound and back she has increased shortness of air and is unable to speak informed that her words. Patient does not have any wheezing noted vital signs appear to be stable. She has used her inhaler to see if this would help with her shortness of air. Patient denies any history of DVTs in the past. She denies any control pills at this time, she denies any history of smoking, she denies any recent travel. She does state she has a family history of DVTs however it is not her mother father or brother and sister. Review of Systems Review of Systems Constitutional: Denies fever or chills [] Eyes: Denies change in visual acuity, redness, or eye pain [] HENT: Denies nasal congestion or sore throat [] Respiratory: Denies cough or shortness of breath [] Cardiovascular: No additional information not addressed in HPI [] GI: Denies abdominal pain, nausea, vomiting, bloody stools or diarrhea [] : Denies dysuria or hematuria [] Musculoskeletal: Denies back pain. C/o right lower leg pain Integument: Denies rash or skin lesions [] Neurologic: Denies headache, focal weakness or sensory changes [] Endocrine: Denies polyuria or polydipsia [] Current Medications Current Medications Current Medications Medications (Trade) Dose Ordered Sig/Rc Start Time Stop Time Status Last Admin Dose Admin Albuterol/ Ipratropium (Duoneb) 3 ml 1X ONCE 01/22/17 15:15 01/22/17 15:16 DC 01/22/17 15:24 3 ML Info (Do NOT chart on this entry -- for MONITORING) 1 each PRN DAILY PRN 01/22/17 15:00 01/22/17 17:06 DC Iohexol (Omnipaque 300 Mg/ml) 75 ml STK-MED ONCE 01/22/17 15:05 01/22/17 15:06 DC Prednisone (Prednisone) 60 mg 1X ONCE 01/22/17 16:45 01/22/17 16:46 DC 01/22/17 16:45 60 MG Allergies Allergies Allergies Coded Allergies Type Severity Reaction Last Updated Verified amoxicillin Allergy Intermediate 01/26/15 Yes Physical Exam Physical Exam Constitutional: Well developed, well nourished, no acute distress, non-toxic appearance. [] HENT: Normocephalic, atraumatic, bilateral external ears normal, oropharynx moist, no oral exudates, nose normal. [] Eyes: PERRLA, EOMI, conjunctiva normal, no discharge. [] Neck: Normal range of motion, no tenderness, supple, no stridor. [] Cardiovascular:Heart rate regular rhythm, no murmur [] Lungs & Thorax: Bilateral breath sounds clear to auscultation. Patient is unable to speak for 4 letter sentences Skin: Warm, dry, no erythema, no rash. [] Back: No tenderness Extremities: No tenderness, no cyanosis, no clubbing, ROM intact, no edema. Right lower leg with 2+ pedal pulses. Cap refill brisk less than 2 seconds. Neurologic: Alert and oriented X 3, normal motor function, normal sensory function, no focal deficits noted. [] Psychologic: Affect normal, judgement normal, mood normal. [] Current Patient Data Vital Signs Vital Signs Date Time Temp Pulse Resp B/P (MAP) Pulse Ox O2 Delivery O2 Flow Rate FiO2 01/22/17 16:30 88 36 144/83 (103) 99 Nasal Cannula 2.0 01/22/17 13:44 98.0 98.0 Lab Values Laboratory Tests Test 01/22/17 14:20 01/22/17 14:34 White Blood Count 6.9 x10^3/uL (4.0-11.0) Red Blood Count 4.62 x10^6/uL (3.50-5.40) Hemoglobin 14.2 g/dL (12.0-15.5) Hematocrit 41.6 % (36.0-47.0) Mean Corpuscular Volume 90 fL (79-100) Mean Corpuscular Hemoglobin 31 pg (25-35) Mean Corpuscular Hemoglobin Concent 34 g/dL (31-37) Red Cell Distribution Width 13.3 % (11.5-14.5) Platelet Count 297 x10^3/uL (140-400) Neutrophils (%) (Auto) 33 % (31-73) Lymphocytes (%) (Auto) 57 % (24-48) H Monocytes (%) (Auto) 9 % (0-9) Eosinophils (%) (Auto) 1 % (0-3) Basophils (%) (Auto) 1 % (0-3) Neutrophils # (Auto) 2.2 x10^3uL (1.8-7.7) Lymphocytes # (Auto) 3.9 x10^3/uL (1.0-4.8) Monocytes # (Auto) 0.6 x10^3/uL (0.0-1.1) Eosinophils # (Auto) 0.1 x10^3/uL (0.0-0.7) Basophils # (Auto) 0.0 x10^3/uL (0.0-0.2) Prothrombin Time 11.8 SEC (11.7-14.0) Prothrombin Time INR 0.9 (0.8-1.1) Sodium Level 140 mmol/L (136-145) Potassium Level 3.8 mmol/L (3.5-5.1) Chloride Level 105 mmol/L (98-107) Carbon Dioxide Level 25 mmol/L (21-32) Anion Gap 10 (6-14) 15 mmol/L (6-14) H Blood Urea Nitrogen 8 mg/dL (7-20) Creatinine 0.8 mg/dL (0.6-1.0) Estimated GFR (Cockcroft-Gault) 94.3 BUN/Creatinine Ratio 10 (6-20) Glucose Level 104 mg/dL (70-99) H 100 mg/dL (70-99) H Calcium Level 9.3 mg/dL (8.5-10.1) Total Bilirubin 0.5 mg/dL (0.2-1.0) Aspartate Amino Transferase (AST) 27 U/L (15-37) Alanine Aminotransferase (ALT) 40 U/L (14-59) Alkaline Phosphatase 119 U/L (46-116) H Total Protein 7.2 g/dL (6.4-8.2) Albumin 3.5 g/dL (3.4-5.0) Albumin/Globulin Ratio 0.9 (1.0-1.7) L POC Hemoglobin 15.0 g/dL (12-15) POC Hematocrit 44 % (36-40) H POC Sodium 140 mmol/L (135-145) POC Potassium 3.6 mmol/L (3.5-5.0) POC Chloride 105 mmol/L (98-110) POC Total CO2 24 mmol/L (23-32) POC Blood Urea Nitrogen 6 mg/dL (8-26) L POC Creatinine 0.8 mg/dL (0.5-1.4) POC Ionized Calcium (Shruthi) 1.19 mmol/L (1.13-1.32) Laboratory Tests 01/22/17 14:20 Laboratory Tests 01/22/17 14:20 01/22/17 14:34 EKG EKG [EKG displays normal sinus rhythm with left axis deviation present the ventricular rate is 94 bpm the CA interval 148 ms saturations 92 ms there are inverted T waves in lead 3 and aVR EKG interpreted by Dr. Melvin current 2:42 PM on January 22, 2017. Radiology/Procedures Radiology/Procedures [ Axial images to the chest were obtained. The examination was tailored for the detection of pulmonary embolus. Approximately 75 cc of Omnipaque 300 was administered intravenously. Note is made of a previous examination 04/23/2016. MIP images were generated and reviewed. The study is somewhat limited. The level of inspiratory effort is not optimal and, additionally, there is some respiratory motion artifact. There are patchy opacities in the lungs resembling groundglass opacities. Some of this may be secondary to suboptimal inspiratory effort and/or some respiratory motion. Patchy infiltrates, on an inflammatory basis, are not excluded. A component of interstitial edema similarly is not excluded. A focal consolidated pneumonia is not seen and no dominant soft tissue mass in the chest is seen. The thoracic aorta appears unremarkable. The study is negative for pulmonary embolus. Imaging through the upper abdomen is unremarkable. IMPRESSION: Negative study for pulmonary embolus. Slightly limited study. There is suboptimal inspiratory effort and some respiratory motion artifact. Patchy pulmonary infiltrates are not excluded. See above discussion PQRS Compliance Statement: One or more of the following individualized dose reduction techniques were utilized for this examination: 1. Automated exposure control 2. Adjustment of the mA and/or kV according to patient size 3. Use of iterative reconstruction technique] Right lower extremity venous ultrasound, 01/22/2017 : History: Right knee pain Duplex evaluation including grayscale, color flow and spectral Doppler analysis was performed. The femoral and popliteal veins show no filling defects to suggest DVT. The visualized deep veins in the right calf are unremarkable. There is a small elongated fluid collection the right popliteal fossa compatible with a Ceballos's cyst. It measures 3 x 1 x 1.5 cm. IMPRESSION: 1. There is no sonographic evidence of deep vein thrombosis in the right lower extremity. 2. Small popliteal cyst. Course & Med Decision Making Course & Med Decision Making Pertinent Labs and Imaging studies reviewed. (See chart for details) Report was given to Dr. Warner and Olegario who will continue with patient's care. Patient has a CBC, CMP, CT chest for PE protocol. EKG was also ordered. Rechecked the patient had 2:45 pm and she has some increased respiratory rate even just at rest. Patient's oxygen saturation is 93% on room air. The patient' s heart rate is 96. The patient had no wheezing on respiratory exam patient is air movement throughout her lungs. The patient had a regular rate and rhythm without murmurs gallops or rubs. The patient has no lower extremity edema that I can appreciate. Saturation on oxygen due to her increased respiratory rate. The patient's CT results were negative for any pulmonary embolus and patient's ultrasound showing signs of DVT. The patient maintained her oxygen levels above 93% throughout her ED evaluation. Patient was started on empiric Eddie to cover for possible pneumonia based on CT findings. The patient will also be prescribed prednisone and nebulizer treatments. I service is with the patient she was understanding and agrees with plan. [] Dragon Disclaimer Dragon Disclaimer This electronic medical record was generated, in whole or in part, using a voice recognition dictation system. Departure Departure Impression: Primary Impression: Asthma exacerbation Additional Impressions: Chest wall pain Pneumonia Disposition: 01 HOME, SELF-CARE Condition: GOOD Referrals: UNKNOWN PCP NAME (PCP) Patient Instructions: Asthma, Adult, Pneumonia, Adult Additional Instructions: Please follow up with her primary care physician in one to 2 days for recheck. If you are unable to obtain a primary care physician Campbell free to follow-up here in the emergency department. Scripts Albuterol Sulfate (PROAIR HFA INHALER) 8.5 Gm Hfa.aer.ad 2 PUFF INH PRN Q4HRS Y for SHORTNESS OF BREATH, #1 INHALER 0 Refills Prov: WALDEMAR MELVIN MD 01/22/17 Azithromycin (AZITHROMYCIN TABLET) 250 Mg Tablet 250 MG PO DAILY for ANTI-BIOTIC for 5 Days, #6 TAB 0 Refills Please take 2 tablets on day 1 and 1 tablet daily for the for following four days Prov: WALDEMAR MELVIN MD 01/22/17 Prednisone (PREDNISONE) 50 Mg Tablet 50 MG PO DAILY for 7 Days, #7 TAB 0 Refills Prov: WALDEMAR MELVIN MD 01/22/17 Problem Qualifiers ANURAG CLARK APRN Jan 22, 2017 14:19 WALDEMAR MELVIN MD Jan 22, 2017 14:43
--- NOTE | 2017-01-22 14:30 | RAD ---
Right lower extremity venous ultrasound, 01/22/2017 : History: Right knee pain Duplex evaluation including grayscale, color flow and spectral Doppler analysis was performed. The femoral and popliteal veins show no filling defects to suggest DVT. The visualized deep veins in the right calf are unremarkable. There is a small elongated fluid collection the right popliteal fossa compatible with a Ceballos's cyst. It measures 3 x 1 x 1.5 cm. IMPRESSION: 1. There is no sonographic evidence of deep vein thrombosis in the right lower extremity. 2. Small popliteal cyst.
[2017-01-22 14:32] LABS: BASO % 1 % (0-3); EOS % 1 % (0-3); HEMATOCRIT 41.6 % (36.0-47.0); HEMOGLOBIN 14.2 g/dL (12.0-15.5); LYMPH # 3.9 x10^3/uL (1.0-4.8); LYMPH % 57 % (24-48); MEAN CORPUSCULAR HEMOGLOBIN 31 pg (25-35); MEAN CORPUSCULAR HGB CONC 34 g/dL (31-37); MEAN CORPUSCULAR VOLUME 90 fL (79-100); MONO % 9 % (0-9); NEUT % 33 % (31-73); PLATELET COUNT 297 x10^3/uL (140-400); RED BLOOD COUNT 4.62 x10^6/uL (3.50-5.40); RED CELL DISTRIBUTION WIDTH 13.3 % (11.5-14.5); WHITE BLOOD COUNT 6.9 x10^3/uL (4.0-11.0)
[2017-01-22 14:39] LABS: POTASSIUM ISTAT 3.6 mmol/L (3.5-5.0)
--- NOTE | 2017-01-22 14:43 | EKG ---
[facility] [address] [place] [address] Test Date: 2017-01-22 Test Time: 14:35:53 Pat Name: RADHIKA SCHAEFER Department: Room: Gender: F Private Duty Nurse: : 1970 Requested By: ANURAG CLARK Order Number: [id number] Reading MD: Radha Meraz Measurements Intervals [place] Rate: 94 P: 50 NV: 148 QRS: -7 QRSD: 92 T: 6 QT: 364 QTc: 461 Interpretive Statements SINUS RHYTHM LEFTWARD AXIS NORMAL EKG Electronically Signed On 01-26-2017 11:05:43 CDT by Radha Meraz
[2017-01-22 14:48] LABS: CALCIUM 9.3 mg/dL (8.5-10.1); CREATININE 0.8 mg/dL (0.6-1.0); GFR 94.3; POTASSIUM 3.8 mmol/L (3.5-5.1)
[2017-01-22 14:54] LABS: ALBUMIN 3.5 g/dL (3.4-5.0); ALBUMIN/GLOBULIN RATIO 0.9 (1.0-1.7); TOTAL BILIRUBIN 0.5 mg/dL (0.2-1.0); TOTAL PROTEIN 7.2 g/dL (6.4-8.2)
[2017-01-22] MEDS ORDERED: IOHEXOL 300 MG/ML 75 ML VIAL IV ONE (15:00)
[2017-01-22] MEDS ORDERED: CONTRAST GIVEN MC PRN (15:00)
[2017-01-22] MEDS ORDERED: IOHEXOL 300 MG/ML 75 ML VIAL ONE (15:05)
[2017-01-22] MEDS ORDERED: IPRATRPIUM/ALBUTEROL 0.5/2.5MG 3 ML NEBU. NEB ONE (15:15)
--- NOTE | 2017-01-22 15:31 | RAD ---
Indication shortness of air. Axial images to the chest were obtained. The examination was tailored for the detection of pulmonary embolus. Approximately 75 cc of Omnipaque 300 was administered intravenously. Note is made of a previous examination 04/23/2016. MIP images were generated and reviewed. The study is somewhat limited. The level of inspiratory effort is not optimal and, additionally, there is some respiratory motion artifact. There are patchy opacities in the lungs resembling groundglass opacities. Some of this may be secondary to suboptimal inspiratory effort and/or some respiratory motion. Patchy infiltrates, on an inflammatory basis, are not excluded. A component of interstitial edema similarly is not excluded. A focal consolidated pneumonia is not seen and no dominant soft tissue mass in the chest is seen. The thoracic aorta appears unremarkable. The study is negative for pulmonary embolus. Imaging through the upper abdomen is unremarkable. IMPRESSION: Negative study for pulmonary embolus. Slightly limited study. There is suboptimal inspiratory effort and some respiratory motion artifact. Patchy pulmonary infiltrates are not excluded. See above discussion PQRS Compliance Statement: One or more of the following individualized dose reduction techniques were utilized for this examination: 1. Automated exposure control 2. Adjustment of the mA and/or kV according to patient size 3. Use of iterative reconstruction technique
[2017-01-22 15:42] LABS: INR 0.9 (0.8-1.1); PROTHROMBIN TIME PATIENT 11.8 SEC (11.7-14.0)
[2017-01-22] MEDS ORDERED: PRED50TA PO (16:28)
[2017-01-22] MEDS ORDERED: AZIT250T6 PO (16:28)
[2017-01-22] MEDS ORDERED: PROAIR HFA8.5 GM INH (16:28)
[2017-01-22 16:30] VITALS: BP 144/83
[2017-01-22] MEDS ORDERED: predniSONE 20 MG TABLET PO ONE (16:45)
== END 2017-01-22 16:57 | disposition home or self-care (01) ==
LOC: ER 13:31
DX: J45.901 Unspecified asthma with (acute) exacerbation (principal); J18.9 Pneumonia, unspecified organism; I10 Essential (primary) hypertension
CPT/HCPCS: 36415; 71275; 80047; 80053; 85025; 85610; 93005; 93971; 94250; 94640; 99285; J7512; J7620; Q9967

== ENCOUNTER 2017-07-31 12:03 | Inpatient (IN) | payer BC ==
[2017-07-31] MEDS ORDERED: MORPHINE SULFATE 4 MG/ML DISP.SYRIN. IV/SQ (12:30)
[2017-07-31 12:41] LABS: ADD MAN DIFF? NO
[2017-07-31 12:45] LABS: BASO # 0.1 x10^3/uL (0.0-0.2); BASO % 1 % (0-3); EOS # 0.1 x10^3/uL (0.0-0.7); EOS % 1 % (0-3); HEMATOCRIT 41.4 % (36.0-47.0); HEMOGLOBIN 13.9 g/dL (12.0-15.5); LYMPH # 3.6 x10^3/uL (1.0-4.8); LYMPH % 54 % (24-48); MEAN CORPUSCULAR HEMOGLOBIN 30 pg (25-35); MEAN CORPUSCULAR HGB CONC 34 g/dL (31-37); MEAN CORPUSCULAR VOLUME 90 fL (79-100); MONO # 0.7 x10^3/uL (0.0-1.1); MONO % 11 % (0-9); NEUT # 2.2 x10^3uL (1.8-7.7); NEUT % 34 % (31-73); PLATELET COUNT 380 x10^3/uL (140-400); RED BLOOD COUNT 4.62 x10^6/uL (3.50-5.40); RED CELL DISTRIBUTION WIDTH 13.7 % (11.5-14.5); WHITE BLOOD COUNT 6.7 x10^3/uL (4.0-11.0)
[2017-07-31 12:55] LABS: INR 1.3 (0.8-1.1); PROTHROMBIN TIME PATIENT 15.9 SEC (11.7-14.0)
[2017-07-31 13:02] LABS: ANION GAP 9 (6-14); BLOOD UREA NITROGEN 7 mg/dL (7-20); CALCIUM 9.4 mg/dL (8.5-10.1); CARBON DIOXIDE 27 mmol/L (21-32); CHLORIDE 106 mmol/L (98-107); GFR 72.9; GLUCOSE 116 mg/dL (70-99); POTASSIUM 3.7 mmol/L (3.5-5.1); SODIUM 142 mmol/L (136-145)
[2017-07-31 13:05] LABS: TROPONINI < 0.017 ng/mL (0.000-0.055)
[2017-07-31 13:10] LABS: ALBUMIN 3.2 g/dL (3.4-5.0); ALK PHOS 113 U/L (46-116); ALT (SGPT) 42 U/L (14-59); AST (SGOT) 33 U/L (15-37); DIRECT BILIRUBIN 0.1 mg/dL (0.0-0.2); LIPASE 100 U/L (73-393); TOTAL BILIRUBIN 0.2 mg/dL (0.2-1.0); TOTAL PROTEIN 7.3 g/dL (6.4-8.2)
[2017-07-31 13:13] LABS: THYROID STIM HORMONE (TSH) 1.156 uIU/mL (0.358-3.74)
[2017-07-31 13:16] LABS: CKMB INDEX 0.4 % (0-4); CKMB MASS 0.7 ng/mL (0.0-3.6); CREATINE KINASE 160 U/L (26-192)
[2017-07-31 13:26] LABS: BILIRUBIN,URINE NEGATIVE (NEG); CLARITY,URINE CLEAR; COLOR,URINE YELLOW; GLUCOSE,URINE NEGATIVE (NEG); NITRITE,URINE NEGATIVE (NEG); PROTEIN,URINE NEGATIVE (NEG-TRACE)
[2017-07-31 13:28] LABS: BARBITURATES NEG (NEG); BENZODIAZEPINES NEG (NEG); CANNABINOIDS NEG (NEG); COCAINE NEG (NEG); METHADONE NEG (NEG); OPIATES NEG (NEG); PHENCYCLIDINE NEG (NEG)
[2017-07-31 13:32] LABS: AMPHETAMINE/METHAMPHETAMINE POS (NEG); ETHANOL, URINE NEG (NEG)
[2017-07-31 13:36] LABS: NT-PRO BNP < 5 pg/mL (0-124)
[2017-07-31 13:37] LABS: BACTERIA,URINE MANY /HPF (0-FEW); SQUAMOUS EPITHELIAL CELL,UR MANY /LPF
[2017-07-31] MEDS: IOHEXOL 300 MG/ML 100ML VIAL. IV ×2 (16:00→16:35)
[2017-07-31] MEDS ORDERED: ONDANSETRON PF 4 MG/2 ML VIAL. IV ×2 (16:00→17:00)
[2017-07-31] MEDS ORDERED: CONTRAST GIVEN MC (16:15)
[2017-07-31] MEDS ORDERED: NON FORMULARY ITEM (Albuterol Sulfate (Proair Hfa Inhaler) 2 PUFF) INH (16:45)
[2017-07-31] MEDS ORDERED: MORPHINE SULFATE 4 MG/ML DISP.SYRIN. IV (17:00)
[2017-07-31] MEDS ORDERED: hydrALAZINE 20 MG/ML VIAL. IVP (17:00)
[2017-07-31] MEDS ORDERED: ACETAMINOPHEN 325 MG TABLET. PO (17:00)
[2017-07-31] MEDS: MORPHINE SULFATE 4 MG/ML DISP.SYRIN. IV ×2 (17:31→20:44)
[2017-07-31] MEDS: ASPIRIN 325 MG TABLET PO (17:31)
[2017-07-31] MEDS ORDERED: ALBUTEROL SULFATE 2.5 MG/3 ML NEBU. NEB (18:15)
[2017-07-31] MEDS ORDERED: NON FORMULARY ITEM (Albuterol Sulfate (Ventolin Hfa Inhaler) 2 PUFF) INH (20:00)
[2017-07-31] MEDS: BUDESONIDE 0.5 MG/2 ML NEBU. NEB (20:15)
[2017-07-31] MEDS: IPRATRPIUM/ALBUTEROL 0.5/2.5MG 3 ML NEBU. NEB (20:15)
[2017-07-31] MEDS: hydrOXYzine PAMOATE 25 MG CAPSULE PO (20:43)
[2017-07-31] MEDS: diphenhydrAMINE HCL 25 MG CAPSULE PO (20:43)
[2017-07-31] MEDS: MONTELUKAST SODIUM 10 MG TABLET. PO (20:43)
[2017-07-31] MEDS: AMITRIPTYLINE HCL 10 MG TABLET. PO (20:43)
[2017-07-31] MEDS: traMADol 50 MG TABLET PO (20:44)
[2017-07-31] MEDS ORDERED: NON FORMULARY ITEM (Budesonide/Formoterol Fumarate (Symbicort 160-4.5 Mcg Inhaler) 2 PUFF) IH (21:00)
[2017-07-31] MEDS ORDERED: NON FORMULARY ITEM (Tiotropium Bromide (Spiriva) 2 INH) IH (21:00)
[2017-07-31] MEDS: WARFARIN 3 MG TABLET. PO (23:22)
[2017-07-31] MEDS: WARFARIN 4 MG TABLET. PO (23:22)
[2017-08-01 00:13] LABS: TROPONINI < 0.017 ng/mL (0.000-0.055)
[2017-08-01 04:32] LABS: ADD MAN DIFF? NO
[2017-08-01 05:09] LABS: BASO % 0 % (0-3); EOS # 0.1 x10^3/uL (0.0-0.7); EOS % 1 % (0-3); HEMATOCRIT 39.1 % (36.0-47.0); HEMOGLOBIN 12.9 g/dL (12.0-15.5); LYMPH # 3.1 x10^3/uL (1.0-4.8); LYMPH % 52 % (24-48); MEAN CORPUSCULAR HEMOGLOBIN 30 pg (25-35); MEAN CORPUSCULAR HGB CONC 33 g/dL (31-37); MEAN CORPUSCULAR VOLUME 91 fL (79-100); MONO # 0.8 x10^3/uL (0.0-1.1); MONO % 14 % (0-9); NEUT # 1.9 x10^3uL (1.8-7.7); NEUT % 33 % (31-73); PLATELET COUNT 334 x10^3/uL (140-400); RED CELL DISTRIBUTION WIDTH 13.9 % (11.5-14.5)
[2017-08-01 05:11] LABS: INR 1.2 (0.8-1.1); PROTHROMBIN TIME PATIENT 14.7 SEC (11.7-14.0)
[2017-08-01 05:49] LABS: ANION GAP 5 (6-14); BLOOD UREA NITROGEN 8 mg/dL (7-20); CARBON DIOXIDE 31 mmol/L (21-32); CHLORIDE 105 mmol/L (98-107); GFR 72.9; GLUCOSE 129 mg/dL (70-99); POTASSIUM 3.9 mmol/L (3.5-5.1); SODIUM 141 mmol/L (136-145)
[2017-08-01] MEDS: IPRATRPIUM/ALBUTEROL 0.5/2.5MG 3 ML NEBU. NEB ×4 (08:13→20:42)
[2017-08-01] MEDS: hydrOXYzine PAMOATE 25 MG CAPSULE PO ×3 (08:13→20:52)
[2017-08-01] MEDS: traMADol 50 MG TABLET PO (08:13)
[2017-08-01] MEDS: CETIRIZINE HCL 10 MG TABLET. PO (08:13)
[2017-08-01] MEDS: BUDESONIDE 0.5 MG/2 ML NEBU. NEB ×2 (08:13→20:42)
[2017-08-01] MEDS ORDERED: cefTRIAXone IM 1 GM VIAL IM (11:15)
[2017-08-01] MEDS: amLODIPine BESYLATE 5 MG TABLET PO (12:19)
[2017-08-01] MEDS: HYDROcodone/APAP 5/325MG 1 TAB TABLET PO ×2 (12:19→20:52)
[2017-08-01] MEDS: MAG HYDROX/ALUMINUM HYD/SIMETH 30 ML ORAL.SUSP PO (15:00)
[2017-08-01] MEDS: LACTOBACILLUS RHAMNOSUS GG 1 CAPSULE. PO ×2 (15:00→20:51)
[2017-08-01] MEDS: WARFARIN 10 MG TABLET. PO (16:42)
[2017-08-01] MEDS: WARFARIN 4 MG TABLET. PO (16:43)
[2017-08-01] MEDS: MONTELUKAST SODIUM 10 MG TABLET. PO (20:51)
[2017-08-01] MEDS: AMITRIPTYLINE HCL 10 MG TABLET. PO (20:52)
[2017-08-01] MEDS: diphenhydrAMINE HCL 25 MG CAPSULE PO (20:52)
[2017-08-02 04:31] LABS: ADD MAN DIFF? NO
[2017-08-02 04:37] LABS: BASO % 1 % (0-3); EOS # 0.1 x10^3/uL (0.0-0.7); EOS % 2 % (0-3); HEMATOCRIT 40.6 % (36.0-47.0); HEMOGLOBIN 13.5 g/dL (12.0-15.5); LYMPH % 56 % (24-48); MEAN CORPUSCULAR HEMOGLOBIN 30 pg (25-35); MEAN CORPUSCULAR HGB CONC 33 g/dL (31-37); MEAN CORPUSCULAR VOLUME 91 fL (79-100); MONO # 0.6 x10^3/uL (0.0-1.1); MONO % 11 % (0-9); NEUT # 1.7 x10^3uL (1.8-7.7); NEUT % 31 % (31-73); PLATELET COUNT 340 x10^3/uL (140-400); RED BLOOD COUNT 4.45 x10^6/uL (3.50-5.40); RED CELL DISTRIBUTION WIDTH 13.9 % (11.5-14.5); WHITE BLOOD COUNT 5.4 x10^3/uL (4.0-11.0)
[2017-08-02 05:03] LABS: ANION GAP 9 (6-14); BLOOD UREA NITROGEN 6 mg/dL (7-20); CALCIUM 8.9 mg/dL (8.5-10.1); CARBON DIOXIDE 29 mmol/L (21-32); CHLORIDE 103 mmol/L (98-107); CREATININE 0.8 mg/dL (0.6-1.0); GFR 94.3; GLUCOSE 120 mg/dL (70-99); POTASSIUM 3.5 mmol/L (3.5-5.1); SODIUM 141 mmol/L (136-145)
[2017-08-02 06:18] LABS: INR 1.2 (0.8-1.1); PROTHROMBIN TIME PATIENT 14.4 SEC (11.7-14.0)
[2017-08-02] MEDS: LACTOBACILLUS RHAMNOSUS GG 1 CAPSULE. PO ×2 (08:30→20:07)
[2017-08-02] MEDS: hydrOXYzine PAMOATE 25 MG CAPSULE PO ×3 (08:30→20:08)
[2017-08-02] MEDS: amLODIPine BESYLATE 5 MG TABLET PO (08:30)
[2017-08-02] MEDS: HYDROcodone/APAP 5/325MG 1 TAB TABLET PO ×3 (08:30→20:08)
[2017-08-02] MEDS: CETIRIZINE HCL 10 MG TABLET. PO (08:30)
[2017-08-02] MEDS: BUDESONIDE 0.5 MG/2 ML NEBU. NEB ×2 (09:20→20:27)
[2017-08-02] MEDS: IPRATRPIUM/ALBUTEROL 0.5/2.5MG 3 ML NEBU. NEB ×4 (09:20→20:27)
[2017-08-02] MEDS: WARFARIN 4 MG TABLET. PO (17:40)
[2017-08-02] MEDS: WARFARIN 10 MG TABLET. PO (17:40)
[2017-08-02] MEDS: AMITRIPTYLINE HCL 10 MG TABLET. PO (20:07)
[2017-08-02] MEDS: MONTELUKAST SODIUM 10 MG TABLET. PO (20:07)
[2017-08-02] MEDS: diphenhydrAMINE HCL 25 MG CAPSULE PO (20:07)
[2017-08-02] MEDS: DOCUSATE SODIUM 100 MG CAPSULE. PO (21:06)
[2017-08-02] MEDS: BISACODYL 5 MG TABLET.DR. PO (21:06)
[2017-08-03 05:03] LABS: ADD MAN DIFF? NO
[2017-08-03 05:19] LABS: BASO % 0 % (0-3); EOS # 0.1 x10^3/uL (0.0-0.7); EOS % 1 % (0-3); HEMATOCRIT 37.5 % (36.0-47.0); HEMOGLOBIN 12.5 g/dL (12.0-15.5); LYMPH % 49 % (24-48); MEAN CORPUSCULAR HEMOGLOBIN 30 pg (25-35); MEAN CORPUSCULAR HGB CONC 33 g/dL (31-37); MEAN CORPUSCULAR VOLUME 91 fL (79-100); MONO # 0.7 x10^3/uL (0.0-1.1); MONO % 11 % (0-9); NEUT # 2.3 x10^3uL (1.8-7.7); NEUT % 38 % (31-73); PLATELET COUNT 296 x10^3/uL (140-400); RED BLOOD COUNT 4.12 x10^6/uL (3.50-5.40); RED CELL DISTRIBUTION WIDTH 13.9 % (11.5-14.5); WHITE BLOOD COUNT 6.1 x10^3/uL (4.0-11.0)
[2017-08-03 05:42] LABS: ANION GAP 7 (6-14); BLOOD UREA NITROGEN 7 mg/dL (7-20); CALCIUM 8.7 mg/dL (8.5-10.1); CARBON DIOXIDE 28 mmol/L (21-32); CHLORIDE 105 mmol/L (98-107); CREATININE 0.9 mg/dL (0.6-1.0); GFR 82.3; GLUCOSE 198 mg/dL (70-99); POTASSIUM 3.7 mmol/L (3.5-5.1); SODIUM 140 mmol/L (136-145)
[2017-08-03] MEDS: HYDROcodone/APAP 5/325MG 1 TAB TABLET PO (06:02)
[2017-08-03] MEDS: BUDESONIDE 0.5 MG/2 ML NEBU. NEB ×2 (07:12→16:48)
[2017-08-03] MEDS: IPRATRPIUM/ALBUTEROL 0.5/2.5MG 3 ML NEBU. NEB ×3 (07:12→16:48)
[2017-08-03] MEDS: REGADENOSON 0.4 MG/5 ML DISP.SYRIN. IV (08:43)
[2017-08-03] MEDS: hydrOXYzine PAMOATE 25 MG CAPSULE PO ×2 (13:46→14:00)
[2017-08-03] MEDS: LACTOBACILLUS RHAMNOSUS GG 1 CAPSULE. PO (13:46)
[2017-08-03] MEDS: CETIRIZINE HCL 10 MG TABLET. PO (13:46)
[2017-08-03] MEDS: BISACODYL 5 MG TABLET.DR. PO ×2 (13:47→14:00)
[2017-08-03] MEDS: amLODIPine BESYLATE 5 MG TABLET PO (13:47)
[2017-08-03] MEDS: WARFARIN 4 MG TABLET. PO (16:00)
[2017-08-03] MEDS: WARFARIN 10 MG TABLET. PO (16:00)
== END 2017-08-03 17:26 | disposition home or self-care (01) | DRG 202 ==
LOC: ER 12:03 → 2 NORTH 16:00
DX: J45.901 Unspecified asthma with (acute) exacerbation (principal); Z68.43 Body mass index [BMI] 50.0-59.9, adult; E66.01 Morbid (severe) obesity due to excess calories; G90.50 Complex regional pain syndrome I, unspecified; R07.89 Other chest pain; K21.9 Gastro-esophageal reflux disease without esophagitis; F41.9 Anxiety disorder, unspecified; H26.9 Unspecified cataract; I10 Essential (primary) hypertension; Z79.01 Long term (current) use of anticoagulants; Z82.49 Family history of ischemic heart disease and other diseases of the circulatory system; Z82.5 Family history of asthma and other chronic lower respiratory diseases; Z86.718 Personal history of other venous thrombosis and embolism; Z90.710 Acquired absence of both cervix and uterus; Z90.49 Acquired absence of other specified parts of digestive tract
CPT/HCPCS: 36415; 71045; 71275; 73721; 74174; 78452; 80048; 80076; 80307; 81001; 82553; 83690; 83735; 83880; 84443; 84484; 85025; 85610; 87086; 93005; 93017; 93306; 93971; 94640; 94760; 96374; 96375; 97161-GP; 97165-GO; 99285; 99285-25; A9500; J1650; J2270; J2785; J7620; J7626; Q0163; Q0177; Q9967